=== PATIENT | female | born 1935 | race Caucasian/White ===

== ENCOUNTER 2019-04-12 16:29 | Inpatient (IN) | payer MEDICARE, SELFPAY ==
--- NOTE | ~2019-04-12 | XR_ITS ---
XR shoulder RT min 2V 04/13/2019 13:49 Indication: Right shoulder pain Procedure: 4 views right shoulder Comparison: No prior studies for comparison. Findings: There is severe osteoarthritis of the right shoulder including the glenohumeral and acromio clavicular joints. No acute fracture or traumatic malalignment. There is probable rotator cuff tear. Osteopenia. 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 Reviewed, dictated and finalized at location A. 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
--- NOTE | ~2019-04-12 | CT_ITS ---
EXAMINATION: CT lumbar spine wo con DATE: 04/12/2019 19:37 INDICATION: Low back pain after fall TECHNIQUE: Computed tomography (CT) of the lumbar spine was performed without intravenous contrast. T he dose-length product was 499.06 mGy-cm. Automated exposure control and iterative reconstruction farnaz hnique were employed. COMPARISON: None FINDINGS: There are bilateral sacral fractures. There is disc narrowing at L2-3 through L5-S1. There is moderate-severe diffuse lumbar facet hypertrophy. Mild levoscoliosis of the lumbar spine. Vertebra l body heights are maintained. No significant abnormality is of the visualized aspects of the abdomen . IMPRESSION: 1. Nondisplaced bilateral sacral fractures. 2: Severe lumbar spondylosis. Reviewed, dictated and finalized at location A. S CUTTER
--- NOTE | ~2019-04-12 | US_ITS ---
EXAMINATION: US right upper quadrant DATE: 04/14/2019 11:11 INDICATION: Abnormal liver function tests. TECHNIQUE: Multiple grayscale and Doppler ultrasound images of the abdomen were obtained. COMPARISON: CT abdomen and pelvis 11/18/2018 FINDINGS: The visualized portions of the head, body, and tail of the pancreas are normal. The liver i s normal without focal lesion. No liver surface nodularity. There is normal flow in main portal vein. The gallbladder is normal in size and contains gallstones. No gallbladder wall thickening or sonogra phic La sign. The common duct is normal and measures 4 mm. Abdominal aorta is normal in caliber. IMPRESSION: 1. Cholelithiasis. No evidence of acute cholecystitis. Reviewed, dictated and finalized at location A. N ASSISTANT
[2019-04-12 17:10] VITALS: BP 164/60; PULSE 65; RESP 16; TEMP 37.1; O2SAT 98
--- NOTE | 2019-04-12 18:05 | ED_ITS ---
I attest that this documentation has been prepared under the direction and in the presence of Darlene Underwood Scribe 04/12/19;18:05 HPI - Back Pain/Injury General Chief Complaint: Back Pain/Injury Stated Complaint: LOW BACK Time Seen by Provider: 04/12/19 18:03 Related Data Home Medications Medication Instructions Recorded Confirmed amlodipine 5 mg tablet 5 mg PO DAILY 03/18/19 ascorbate calcium (vitamin C) 500 500 mg PO BID 03/18/19 mg tablet aspirin 325 mg tablet 325 mg PO DAILY 03/18/19 calcium citrate 250 mg PO DAILY 03/18/19 cetirizine 10 mg tablet 10 mg PO DAILY PRN tablet 03/18/19 famotidine 20 mg tablet 20 mg PO DAILY 03/18/19 lisinopril 20 mg tablet 20 mg PO DAILY 03/18/19 omega-3 fatty acids 1,000 mg 1,000 mg PO DAILY 03/18/19 capsule Allergies Allergy/AdvReac Type Severity Reaction Status Date / Time No Known Allergies Allergy Verified 04/10/19 17:23 [facility] Past Medical History Medical History (Updated 04/10/19 @ 21:45 by Jen Sharma MD) Anticoagulation goal of INR 2 to 3 Arthritis of spine Chronic diarrhea Colon polyp Essential (primary) hypertension HH (hiatus hernia) History of right breast cancer Hx antineoplastic chemotherapy Personal history of radiation exposure Pulmonary embolism Right leg DVT Surgical History Surgical History (Updated 04/10/19 @ 21:45 by Jen Sharma MD) H/O colonoscopy History of right knee joint replacement History of right mastectomy Social History Social History (Updated 04/10/19 @ 17:24 by Renetta Lemus) Smoking status: Never smoker Second hand tobacco smoke exposure: No Alcohol intake: never Substance use: never Substance use type: does not use Gender identity (if verbalized by the patient): Female Course Vital Signs Vital signs: Vital Signs Temperature 37.1 C 04/12/19 17:10 Pulse Rate 65 04/12/19 17:10 Respiratory Rate 16 04/12/19 17:10 Blood Pressure 164/60 H 04/12/19 17:10 Pulse Oximetry 98 04/12/19 17:10 Temperature 37.1 C 04/12/19 17:10 Pulse Rate 65 04/12/19 17:10 Respiratory Rate 16 04/12/19 17:10 Blood Pressure 164/60 H 04/12/19 17:10 Pulse Oximetry 98 04/12/19 17:10 Discharge Plan Discharge Prescriptions: No Action lisinopril 20 mg tablet 20 mg PO DAILY RF: 0 amlodipine 5 mg tablet 5 mg PO DAILY RF: 0 famotidine 20 mg tablet 20 mg PO DAILY RF: 0 ascorbate calcium (vitamin C) 500 mg tablet 500 mg PO BID RF: 0 calcium citrate 250 mg calcium tablet 250 mg PO DAILY RF: 0 omega-3 fatty acids [Fish Oil Concentrate] 1,000 mg capsule 1,000 mg PO DAILY RF: 0 cetirizine 10 mg tablet 10 mg PO DAILY PRNRF: 0 aspirin 325 mg tablet 325 mg PO DAILY RF: 0 tramadol 50 mg tablet 50 mg PO Q6H PRN (Reason: pain) Qty: 42 RF: 0
--- NOTE | 2019-04-12 18:06 | ED.BACK ---
HPI - Back Pain/Injury General Chief Complaint: Back Pain/Injury Stated Complaint: LOW BACK Time Seen by Provider: 04/12/19 18:03 Source: patient and family Mode of arrival: ambulatory (walker) Limitations: no limitations History of Present Illness HPI Narrative: The pt is an 83 y/o female who presents to the ED with c/o lower back pain that began 10 days ago. The pt states that she had a fall on 04/01/19 and was here for rt hip and rt leg pain s/p the fall. Per family member, this pain is now all gone but the pt now has pain across her lower back. At her last visit, the pt's XR was negative. Her pain is alleviated with laying flat and heat, but is aggravated with walking and sitting up. The pt has seen a chiropractor a couple of times but states that she could not be properly evaluated or adjusted because she was not able to lay on her stomach. The pt saw her PCP, Dr. Audra Sharma 2 days ago, who said that she saw severe arthritis of her lower spine and prescribed her Tramadol. The pt and her family member called her PCP again last night because of worsening pain and was told to come to the ED if the pain was this severe. The pt states that she has been using a walker since the fall but can hardly ambulate or get to the bathroom due to the pain. The pt denies rt hip pain, rt leg pain, weakness, dizziness, urinary frequency, urinary retention, dysuria, CP, or SOB. She has not had any falls since her fall in March. MD elicited complaint: back pain Pertinent past history: arthritis and other (fall) Onset (ago): day(s) () Location: lumbar spine Exacerbating factors: other (walking, sitting up) Relieving factors: other (laying flat, heat) Context: fall Associated symptoms: denies other symptoms Related Data Home Medications Medication Instructions Recorded Confirmed amlodipine 5 mg tablet 5 mg PO DAILY 03/18/19 ascorbate calcium (vitamin C) 500 500 mg PO BID 03/18/19 mg tablet aspirin 325 mg tablet 325 mg PO DAILY 03/18/19 calcium citrate 250 mg PO DAILY 03/18/19 cetirizine 10 mg tablet 10 mg PO DAILY PRN tablet 03/18/19 famotidine 20 mg tablet 20 mg PO DAILY 01/07/20 lisinopril 20 mg tablet 20 mg PO DAILY 03/18/19 omega-3 fatty acids 1,000 mg 1,000 mg PO DAILY 03/18/19 capsule Allergies Allergy/AdvReac Type Severity Reaction Status Date / Time No Known Allergies Allergy Verified 04/10/19 17:23 Review of Systems Review of Systems: All systems reviewed & are unremarkable except as noted in HPI and below Constitutional: Constitutional: Denies weakness Cardiovascular: Cardiovascular: Denies chest pain Respiratory: Respiratory: Denies dyspnea Genitourinary: Genitourinary: Denies nocturia, Denies dysuria and Denies other (urinary retention) Musculoskeletal: Musculoskeletal: Reports back pain (lower) and Denies other (rt hip pain, rt leg pain) Neurologic: Denies dizziness PMFSH Past Medical History Medical History Anemia Anticoagulation goal of INR 2 to 3 Arthritis of spine Chronic diarrhea Colon polyp Esophageal disorder Essential (primary) hypertension Fractures rt fingers Gall bladder disease GERD (gastroesophageal reflux disease) HH (hiatus hernia) History of right breast cancer Hx antineoplastic chemotherapy Hyperlipidemia Hypertension Personal history of radiation exposure Pneumonia Pulmonary embolism Right leg DVT Tuberculosis Surgical History Surgical History H/O colonoscopy History of dilatation and curettage History of right knee joint replacement History of right mastectomy Social History Social History Smoking status: Never smoker Second hand tobacco smoke exposure: No Alcohol intake: never Substance use: never Substance use type: does not use Gender identity (if verbalized by the patient): Female
--- NOTE | 2019-04-12 18:40 | ED.BACK ---
HPI - Back Pain/Injury General Chief Complaint: Back Pain/Injury Stated Complaint: LOW BACK Time Seen by Provider: 04/12/19 18:03 Source: patient and family Mode of arrival: ambulatory (walker) Limitations: no limitations History of Present Illness HPI Narrative: The pt is an 83 y/o female who presents to the ED with c/o lower back pain that began 10 days ago. The pt states that she had a fall on 04/01/19 and was here for rt hip and rt leg pain s/p the fall. Per family member, this pain is now all gone but the pt now has pain across her lower back. At her last visit, the pt's XR was negative. Her pain is alleviated with laying flat and heat, but is aggravated with walking and sitting up. The pt has seen a chiropractor a couple of times but states that she could not be properly evaluated or adjusted because she was not able to lay on her stomach. The pt saw her PCP, Dr. Audra Sharma 2 days ago, who said that she saw severe arthritis of her lower spine and prescribed her Tramadol. The pt and her family member called her PCP again last night because of worsening pain and was told to come to the ED if the pain was this severe. The pt states that she has been using a walker since the fall but can hardly ambulate or get to the bathroom due to the pain. The pt denies rt hip pain, rt leg pain, weakness, dizziness, urinary frequency, urinary retention, dysuria, CP, or SOB. She has not had any falls since her fall in March. MD elicited complaint: back pain Pertinent past history: arthritis Onset (ago): day(s) (11) Location: lumbar spine Exacerbating factors: other (walking, sitting up) Relieving factors: other (laying flat, heat) Context: fall Associated symptoms: denies other symptoms Related Data Home Medications Medication Instructions Recorded Confirmed amlodipine 5 mg tablet 5 mg PO DAILY 03/18/19 04/12/19 ascorbate calcium (vitamin C) 500 500 mg PO BID 03/18/19 04/12/19 mg tablet aspirin 325 mg tablet 325 mg PO DAILY 03/18/19 04/12/19 calcium citrate 250 mg PO DAILY 03/18/19 04/12/19 famotidine 20 mg tablet 20 mg PO DAILY 03/18/19 04/12/19 lisinopril 20 mg tablet 20 mg PO DAILY 03/18/19 04/12/19 omega-3 fatty acids 1,000 mg 1,000 mg PO DAILY 03/18/19 04/12/19 capsule Allergies Allergy/AdvReac Type Severity Reaction Status Date / Time No Known Allergies Allergy Verified 04/10/19 17:23 Review of Systems Review of Systems: All systems reviewed & are unremarkable except as noted in HPI and below Constitutional: Constitutional: Denies weakness Cardiovascular: Cardiovascular: Denies chest pain Respiratory: Respiratory: Denies dyspnea Genitourinary: Genitourinary: Denies nocturia, Denies dysuria and Denies other (urinary retention) Musculoskeletal: Musculoskeletal: Reports back pain (lower) and Denies other (rt hip pain, rt leg pain) Neurologic: Denies dizziness PMFSH Past Medical History Medical History Anemia Anticoagulation goal of INR 2 to 3 Arthritis of spine Chronic diarrhea Colon polyp Esophageal disorder Essential (primary) hypertension Fractures rt fingers Gall bladder disease GERD (gastroesophageal reflux disease) HH (hiatus hernia) History of right breast cancer Hx antineoplastic chemotherapy Hyperlipidemia Hypertension Personal history of radiation exposure Pneumonia Pulmonary embolism Right leg DVT Tuberculosis Surgical History Surgical History H/O colonoscopy History of dilatation and curettage History of right knee joint replacement History of right mastectomy Social History Social History Smoking status: Never smoker Second hand tobacco smoke exposure: No Alcohol intake: never Substance use: never Substance use type: does not use Gender identity (if verbalized by the patient): Female Spiritual care concerns:
[2019-04-12 19:09] LABS: Basophils Percent Auto 0.4 % (0.2-1.2); Eosinophils Absolute Auto 0.1 K/mm3 (0-0.3); Eosinophils Percent Auto 1.7 % (0-4.4); Hematocrit 38.6 % (37.0-47.0); Hemoglobin 12.3 g/dL (12.0-15.0); Immature Granulocyte Absolute 0.02 K/mm3 (0.00-0.031); Immature Granulocyte Percent A 0.3 % (0-0.5); Lymphocytes Absolute Auto 1.33 K/mm3 (0.9-3.2); Lymphocytes Percent Auto 17.2 % (18.3-44.2); Mean Corpuscular HGB Conc 31.9 g/dl (32-36); Mean Corpuscular Hemoglobin 29.6 pg (26-34); Mean Corpuscular Volume 92.8 fl (80-100); Mean Platelet Volume 9.6 fl (7.4-10.4); Monocytes Absolute Auto 0.6 K/mm3 (0.1-0.6); Monocytes Percent Auto 7.6 % (2.6-8.5); Neutrophils Absolute Auto 5.6 K/mm3 (1.3-6.7); Neutrophils Percent Auto 72.8 % (45.5-73.1); Platelet Count Result 337 k/mm3 (150-375); Red Blood Count 4.16 M/mm3 (4.2-5.4); Red Cell Distribution Width 12.7 % (11.5-14.5); White Blood Count 7.7 K/mm3 (4.5-10.0)
[2019-04-12 19:20] LABS: Alanine Aminotransferase 78 U/L (4-35); Albumin Level 4.1 g/dL (3.5-5.1); Alkaline Phosphatase 150 U/L (38-126); Aspartate Amino Transferase 52 U/L (14-36); Bilirubin,Total 0.3 mg/dL (0.2-1.3); Blood Urea Nitrogen 35 mg/dL (7-17); Carbon Dioxide 26 mmol/L (22-30); Chloride 99 mmol/L (98-107); Estimated CRCL calculation 31 ml/min; Estimated Glomerular Filt Rate 53; Glucose 115 mg/dL (65-105); Potassium 4.5 mmol/L (3.4-5.0); Sodium 136 mmol/L (137-145)
[2019-04-12 20:29] VITALS: BP 150/70; PULSE 69; RESP 18; O2SAT 96
--- NOTE | 2019-04-12 21:27 | ADMGEN ---
This patient, Dolly Ruiz, was admitted to 2 Medical Room 251-01 [id number]. Patient/family oriented to hospital policies and general routines including ID bracelet, bed and alarms, visiting hours, pain management, procedures, bathroom and other care routines, personal items, smoking policy, room service/diet, and visiting hours. Valuables list has been completed. Information on how to activate the Rapid Response Team has been discussed. Patient/Family are encouraged to report perceived risks to care and to ask questions if they do not understand what they are told or what they should do.
[2019-04-12 22:20] VITALS: BP 153/58; PULSE 70; RESP 16; TEMP 36.2; O2SAT 95
--- NOTE | 2019-04-13 03:41 | PM.IMHP ---
H&P: HPI History of Present Illness Chief complaint: sacral fractures Narrative: This is a pleasant 83-year-old female with known past medical history of previous right-sided breast cancer, hypertension, previous DVT who presented to the hospital with complaint of lower back pain for the past 10 days after she suffered a fall at home. The patient states that approximately 10 days ago she was getting up out of her chair when she suffered a fall. She is unsure if she passed out or not at that time. She did present to the emergency room at that time for evaluation and routine x-rays were obtained which did not demonstrate any acute fracture. Since that time she has had increased debility and difficulty ambulating. She has been trying to ambulate with a walker but has had worsening pain. The patient finally decided to come back to emergency room tonight as her pain was relentless. CT lumbar spine demonstrated bilateral nondisplaced sacral fractures. The patient denies any bowel or bladder incontinence. On further questioning she also denies any fevers, chills, chest pain, shortness of breath, hip pain, abdominal pain, dysuria, hematuria, diarrhea, or rectal bleeding. We been asked to admit the patient to the hospital for her ambulatory dysfunction and severe pain. Patient has no other complaints at this time. Review of Systems Review of Systems: All systems reviewed & are unremarkable except as noted in HPI and below PMFSH Past Medical History Medical History Anemia Anticoagulation goal of INR 2 to 3 Arthritis of spine Chronic diarrhea Colon polyp Esophageal disorder Essential (primary) hypertension Fractures rt fingers Gall bladder disease GERD (gastroesophageal reflux disease) HH (hiatus hernia) History of right breast cancer Hx antineoplastic chemotherapy Hyperlipidemia Hypertension Personal history of radiation exposure Pneumonia Pulmonary embolism Right leg DVT Tuberculosis Surgical History Surgical History H/O colonoscopy History of dilatation and curettage History of right knee joint replacement History of right mastectomy Family History Family History Mother Acute myocardial infarction Breast cancer Diabetes mellitus Sibling Prostate carcinoma Father Eye cancer Diabetes mellitus Social History Social History Smoking status: Never smoker Second hand tobacco smoke exposure: No Alcohol intake: never Substance use: never Substance use type: does not use Gender identity (if verbalized by the patient): Female Spiritual care concerns: No Agree to blood products: Yes Meds Home Medications and Allergies Home Medications Medication Instructions Recorded Confirmed Type amlodipine 5 mg tablet 5 mg PO DAILY 03/18/19 04/12/19 History ascorbate calcium (vitamin C) 500 500 mg PO BID 03/18/19 04/12/19 History mg tablet aspirin 325 mg tablet 325 mg PO DAILY 03/18/19 04/12/19 History calcium citrate 250 mg PO DAILY 03/18/19 04/12/19 History famotidine 20 mg tablet 20 mg PO DAILY 03/18/19 04/12/19 History lisinopril 20 mg tablet 20 mg PO DAILY 03/18/19 04/12/19 History omega-3 fatty acids 1,000 mg 1,000 mg PO DAILY 03/18/19 04/12/19 History capsule tramadol 50 mg tablet 50 mg PO Q6H PRN #42 tablet 04/10/19 04/12/19 Rx Allergies Allergy/AdvReac Type Severity Reaction Status Date / Time No Known Allergies Allergy Verified 04/10/19 17:23 Vital Signs Vital Signs - 24 hr 04/12/19 17:10 04/12/19 20:29 04/12/19 22:20 Temperature 37.1 C 36.2 C L Pulse Rate 65 69 70 Respiratory Rate 16 18 16 Blood Pressure 164/60 H 150/70 H 153/58 H Pulse Oximetry 98 96 95 Exam Const: General: cooperative, alert and awake Nutritional Appearance: well nourished
[2019-04-13 05:55] LABS: Basophils Percent Auto 0.5 % (0.2-1.2); Eosinophils Absolute Auto 0.2 K/mm3 (0-0.3); Eosinophils Percent Auto 2.7 % (0-4.4); Hematocrit 34.9 % (37.0-47.0); Hemoglobin 11.2 g/dL (12.0-15.0); Immature Granulocyte Absolute 0.12 K/mm3 (0.00-0.031); Immature Granulocyte Percent A 1.5 % (0-0.5); Lymphocytes Absolute Auto 1.12 K/mm3 (0.9-3.2); Lymphocytes Percent Auto 13.8 % (18.3-44.2); Mean Corpuscular HGB Conc 32.1 g/dl (32-36); Mean Corpuscular Hemoglobin 29.5 pg (26-34); Mean Corpuscular Volume 91.8 fl (80-100); Mean Platelet Volume 9.7 fl (7.4-10.4); Monocytes Absolute Auto 0.8 K/mm3 (0.1-0.6); Monocytes Percent Auto 10.3 % (2.6-8.5); Neutrophils Absolute Auto 5.8 K/mm3 (1.3-6.7); Neutrophils Percent Auto 71.2 % (45.5-73.1); Platelet Count Result 317 k/mm3 (150-375); Red Cell Distribution Width 12.7 % (11.5-14.5); White Blood Count 8.1 K/mm3 (4.5-10.0)
[2019-04-13 06:00] VITALS: BP 147/62; PULSE 68; RESP 16; TEMP 36.1; O2SAT 100
[2019-04-13 06:19] LABS: Blood Urea Nitrogen 30 mg/dL (7-17); Calcium 8.8 mg/dL (8.4-10.2); Carbon Dioxide 25 mmol/L (22-30); Chloride 103 mmol/L (98-107); Estimated CRCL calculation 26 ml/min; Estimated Glomerular Filt Rate 43; Glucose 111 mg/dL (65-105); Potassium 4.4 mmol/L (3.4-5.0); Sodium 140 mmol/L (137-145)
--- NOTE | 2019-04-13 08:30 | PC.NURSE ---
Patient c/o right shoulder pain. States it is new and she has not experienced it before this morning. Called [facility]EL[facility] and left message regarding same.
[2019-04-13] MEDS: ASCORBIC ACID 500 MG TABLET PO ×2 (10:22→17:29)
[2019-04-13] MEDS: AMLODIPINE BESYLATE 5 MG TABLET PO (10:22)
[2019-04-13] MEDS: lisinopriL 20 MG TABLET PO (10:22)
[2019-04-13] MEDS: ASPIRIN 325 MG TABLET PO (10:22)
[2019-04-13] MEDS: FAMOTIDINE 20 MG TABLET PO (10:22)
[2019-04-13] MEDS: OMEGA 3 POLYUNSAT FATTY ACIDS 1 GM CAP PO (10:22)
--- NOTE | 2019-04-13 12:28 | PM.IMPN ---
Progress Note: A&P Assessment and Plan (1) Sacral fracture, closed: Qualifiers: Encounter type: initial encounter Zone of sacrum fracture: unspecified portion of sacrum Qualified Code(s): S32.10XA - Unspecified fracture of sacrum, initial encounter for closed fracture Code(s): S32.10XA - Unspecified fracture of sacrum, initial encounter for closed fracture Status: Acute Assessment and Plan: Patient is doing okay today. Occasional pain, but controlled with PO pain medication. Orthopedic Surgery consulted and appreciate recommendations Patient will likely need placement until fractures heal. CC working on placement PT/OT once possible Consider Orthostatic BP once able to move. (2) History of right breast cancer: Code(s): Z85.3 - Personal history of malignant neoplasm of breast Status: Chronic Assessment and Plan: No acute issues Follow up as outpatient (3) Essential (primary) hypertension: Code(s): I10 - Essential (primary) hypertension Status: Chronic Assessment and Plan: Elevated likely due to pain but stable. 140s sys this morning Monitor blood pressure. Continue lisinopril. (4) GERD (gastroesophageal reflux disease): Qualifiers: Esophagitis presence: esophagitis presence not specified Qualified Code(s): K21.9 - Gastro-esophageal reflux disease without esophagitis Code(s): K21.9 - Gastro-esophageal reflux disease without esophagitis Status: Chronic Assessment and Plan: No acute issues Continue famotidine (5) Right shoulder pain: Code(s): M25.511 - Pain in right shoulder Status: Acute Assessment and Plan: Pain started today. She is not a very good historian and does not give me much detail about the pain, but does tell me it hurts to adduct arm across body. She does not know if she hit her shoulder on her previous fall 10 days prior to admission. Exam was grossly unremarkable Xray of right shoulder to rule out fracture, but likely a pulled muscle Subjective Date/time seen: 04/13/19 12:28 Interval history: Patient is a 83 yo F with known past medical history of previous right-sided breast cancer, hypertension, previous DVT who is here for non-displaced fracture of the sacrum. Patient is doing okay today, but is in severe low back pain in certain positions while in bed. She complained of right shoulder pain this morning but is difficult time describing or locating the pain. She does tell me it hurts to adduct her arm across her body. She does not recall trauma to the arm/shoulder on the fall. Pain now seems to have subsided with pain medication She states she had a coughing fit this morning and both daughter and patient are concerned, although she states it seems to have passed. She has no other complaints. Denies f/c/ns, headaches, dizziness, lightheadedness, changes in v/h, cp/palpitations, sob, n/v/d/c, abd pain, dysphagia (has bangura in currently), melena, brbpr, dysuria, hematuria, cloudy urine, calf pain/swelling, s/sx of stroke Review of Systems Review of Systems: All systems reviewed & are unremarkable except as noted in HPI and below Exam Narrative: Exam Narrative: Patient lying in semi-gurrola's position at time of visit Const: General: cooperative, comfortable, no acute distress, well developed, alert and awake Nutritional Appearance: well nourished Orientation/consciousness: patient oriented x3 HENMT: Head: normal to inspection, normocephalic and atraumatic General nose exam: Normal external nose present and Normal nares present Face and sinus: normal facial exam Mouth: Yes Normal oral and palatal mucosa present and Yes moist mucous membranes Teeth and gingiva: fair dentition Throat: posterior or
[2019-04-13 14:00] VITALS: BP 136/58; PULSE 63; RESP 16; TEMP 37.1; O2SAT 97
--- NOTE | 2019-04-13 16:38 | PHAR ---
Home medication seen in pharmacy and returned to 2med unit. Calcium Citrate 600mg tablets
[2019-04-13] MEDS: polyethylene glycoL 3350 17 GM POWD.PACK PO (17:29)
[2019-04-13] MEDS: PHARMACIST COMMUNICATION ORDER 1 EACH XX (18:37)
[2019-04-13 19:26] LABS: Add Urine Microscopic? YES; Appearance Urine Clear (Clear); Bacteria Urine Trace /hpf; Bilirubin Urine Negative (Negative); Blood Urine 1+ (Negative); Color Urine Straw (Yellow); Glucose Urine UA Negative (Negative); Ketones Urine Negative (Negative); Leukocyte Esterase Ur Trace LEU/UL (Negative); Mucus Urine Rare /lpf; Nitrate Urine Negative (Negative); Protein Urine Negative (Negative); RBC Urine 0-2 /hpf (0-2); Specific Grav Ur 1.005 (1.001-1.035); Urobilinogen Urine Negative mg/dL (<2.0)
[2019-04-13 22:00] VITALS: BP 158/53; PULSE 73; RESP 18; TEMP 35.8; O2SAT 96
[2019-04-14 05:59] VITALS: BP 136/51; PULSE 78; RESP 16; TEMP 35.9; O2SAT 97
--- NOTE | 2019-04-14 06:01 | PC.NURSE ---
Pt attempted to get out of bed twice this evening. Pt was confused and said she did not know where she was or why she was here on both occasions.
[2019-04-14 06:46] LABS: Hematocrit 36.2 % (37.0-47.0); Hemoglobin 11.7 g/dL (12.0-15.0); Mean Corpuscular HGB Conc 32.3 g/dl (32-36); Mean Corpuscular Hemoglobin 29.6 pg (26-34); Mean Corpuscular Volume 91.6 fl (80-100); Mean Platelet Volume 9.9 fl (7.4-10.4); Platelet Count Result 332 k/mm3 (150-375); Red Blood Count 3.95 M/mm3 (4.2-5.4); Red Cell Distribution Width 12.7 % (11.5-14.5); White Blood Count 10.8 K/mm3 (4.5-10.0)
[2019-04-14 07:02] LABS: Alanine Aminotransferase 81 U/L (4-35); Albumin Level 3.9 g/dL (3.5-5.1); Alkaline Phosphatase 171 U/L (38-126); Aspartate Amino Transferase 53 U/L (14-36); Bilirubin,Total 0.3 mg/dL (0.2-1.3); Blood Urea Nitrogen 31 mg/dL (7-17); Carbon Dioxide 27 mmol/L (22-30); Chloride 99 mmol/L (98-107); Estimated CRCL calculation 28 ml/min; Estimated Glomerular Filt Rate 47; Glucose 115 mg/dL (65-105); Potassium 4.1 mmol/L (3.4-5.0); Sodium 136 mmol/L (137-145)
[2019-04-14 08:04] LABS: Hepatitis B Surface Antigen Negative (Negative)
[2019-04-14 08:10] LABS: HAV RESULT Negative (Negative); Hepatitis B Core IgM Result Negative (Negative)
[2019-04-14 08:22] LABS: Hepatitis C Virus Antibody Negative (Negative)
[2019-04-14] MEDS: ASPIRIN 325 MG TABLET PO (08:58)
[2019-04-14] MEDS: FAMOTIDINE 20 MG TABLET PO (08:58)
[2019-04-14] MEDS: lisinopriL 20 MG TABLET PO (08:58)
[2019-04-14] MEDS: AMLODIPINE BESYLATE 5 MG TABLET PO (08:58)
[2019-04-14] MEDS: ASCORBIC ACID 500 MG TABLET PO ×2 (08:58→16:22)
[2019-04-14] MEDS: OMEGA 3 POLYUNSAT FATTY ACIDS 1 GM CAP PO (08:59)
--- NOTE | 2019-04-14 09:18 | PM.IMPN ---
Progress Note: A&P Assessment and Plan (1) Sacral fracture, closed: Qualifiers: Encounter type: initial encounter Zone of sacrum fracture: unspecified portion of sacrum Qualified Code(s): S32.10XA - Unspecified fracture of sacrum, initial encounter for closed fracture Code(s): S32.10XA - Unspecified fracture of sacrum, initial encounter for closed fracture Status: Acute Assessment and Plan: Patient is doing okay today, although, confused. Occasional pain, but controlled with PO pain medication. Will stop [place] pain medication and place on Ibuprofen PRN Orthopedic Surgery consulted and appreciate recommendations Patient will likely need placement until fractures heal. CC working on placement PT/OT once possible Consider Orthostatic BP once stable to move per ortho. (2) History of right breast cancer: Code(s): Z85.3 - Personal history of malignant neoplasm of breast Status: Chronic Assessment and Plan: No acute issues Follow up as outpatient (3) Essential (primary) hypertension: Code(s): I10 - Essential (primary) hypertension Status: Chronic Assessment and Plan: Elevated likely due to pain but stable. 130s sys this morning Monitor blood pressure. Continue lisinopril. (4) GERD (gastroesophageal reflux disease): Qualifiers: Esophagitis presence: esophagitis presence not specified Qualified Code(s): K21.9 - Gastro-esophageal reflux disease without esophagitis Code(s): K21.9 - Gastro-esophageal reflux disease without esophagitis Status: Chronic Assessment and Plan: No acute issues Continue famotidine (5) Right shoulder pain: Code(s): M25.511 - Pain in right shoulder Status: Acute Assessment and Plan: Pain started yesterday and seemingly has resolved. She is not a very good historian and did not give me much detail about the pain, but did tell me it hurts to adduct arm across body. She does not know if she hit her shoulder on her previous fall 10 days prior to admission. Exam was grossly unremarkable yesterday Xray right shoulder showed severe polyarticular arthritis of right shoulder; no fracture evident Monitor/pain control (6) Transaminitis: Code(s): R74.0 - Nonspecific elevation of levels of transaminase and lactic acid dehydrogenase [LDH] Status: Acute Assessment and Plan: AST 53, ALT 81, alk phos 171. Stable from yesterday RUQ US ordered, will see if patient is willing to perform test this afternoon Hepatitis panel negative Likely f/u with PCP for further monitoring as outpatient (7) Confusion: Code(s): R41.0 - Disorientation, unspecified Status: Acute Assessment and Plan: She is A&Ox4 but slightly confused today as she does not feel like she is in the hospital. Neuro exam is unremarkable. Likely due to unfamiliar setting vs medication vs other Will hold off on brain imaging for now as Neuro exam unremarkable Monitor closely Consider further imaging. Change Durant pain mediation to ibuprofen Subjective Date/time seen: 04/14/19 09:18 Interval history: Patient is a 83 yo F with known past medical history of previous right-sided breast cancer, hypertension, previous DVT who is here for non-displaced fracture of the sacrum. Patient is doing okay today, but patient is slightly confused. She is A&Ox4 but states she does't feel like she's in the hospital; daughter is on the phone at time of visit and concerned. Patient is refusing RUQ US this morning to evaluate her transaminitis as she does not know why it was ordered; this was explained to her and she seemed more open to having the testing. She
[2019-04-14] MEDS: IBUPROFEN 400 MG TABLET PO (09:21)
[2019-04-14 14:00] VITALS: BP 142/48; PULSE 71; RESP 18; TEMP 36.2; O2SAT 94
--- NOTE | 2019-04-14 15:43 | PC.NURSE ---
no IV access. Ok per physician.
--- NOTE | 2019-04-14 15:45 | PM.CNOR ---
Assessment and Plan Assessment and plan (1) Sacral fracture, closed: Qualifiers: Encounter type: initial encounter Zone of sacrum fracture: unspecified portion of sacrum Qualified Code(s): S32.10XA - Unspecified fracture of sacrum, initial encounter for closed fracture Code(s): S32.10XA - Unspecified fracture of sacrum, initial encounter for closed fracture Status: Acute Assessment and Plan: 83 year old female with lower back pain s/p fall on 04/01. Initial radiographs on 04/01 of sacrum and bilateral hips reveal no evidence of fracture or acute abnormality. New lumbar spine CT scan reveals bilateral sacral fractures. The fracture type and injury as well as radiographs discussed with the patient and family. Operative and nonoperative treatment options reviewed. The patient elects for non operative treatment. Risk of nonunion, malunion or late displacement discussed. Stiffness, pain and possible dysfunction of the joint discussed. Fracture precautions and activity restrictions reviewed. The patient verbalizes understanding. Recommended conservative treatment with PT/OT for ambulatory dysfunction. WBAT. Walker. Fall Risk. Will plan to have patient fit with lumbar corset brace from [facility]. Non-narcotic pain medication at patient request. Ice lumbar spine. Agree with TRC or Acute Rehab for assistance with mobility and PT/OT. Follow up in as an outpatient in 5 weeks, will schedule. Thank you for allowing us to assist in the care of this patient. History of Present Illness HPI Consult date: 04/14/19 Requesting physician: Adiel Lora MD Consult reason: fracture (Bilateral Sacral Fractures ) Chief complaint: sacral fractures Narrative: 83 year old female admitted for bilateral sacral fractures. Patient reports a fall out of her recliner directly onto her bottom on 04/01 which prompted her initial visit to the ED. Radiographs of sacrum/coccyx and hips at that time negative for fracture or acute abnormality. She was then sent home. Her pain increased over the next 2 weeks, causing her difficulty with ambulation/ADLs. She then presented back to the ED on 04/12 at which point a lumbar spine CT was performed. Lumbar spine CT revealed bilateral sacral fractures. She was admitted for ambulatory dysfunction and severe pain. She reports pain across her back. She prefers Tylenol/Ibuprofen for pain control as she states the opioids made her confused. Review of Systems Constitutional: Constitutional: Denies chills and Reports weakness (B/L LE) Eyes: Eyes: Reports no additional eye complaints ENT: Reports Normal hearing present Cardiovascular: Cardiovascular: Denies chest pain and Denies lightheadedness Respiratory: Respiratory: Denies dyspnea Gastrointestinal: Gastrointestinal: Reports diarrhea (Intermittent incontinence of loose stool ), Denies nausea and Denies vomiting Genitourinary: Genitourinary: Denies urinary incontinence Musculoskeletal: Musculoskeletal: Reports as per HPI, Reports back pain (Lumbar Back Pain ) and Denies neck pain Comments: Denies bilateral hip pain/bilateral knee pain Denies left shoulder pain Integumentary/Breasts: Skin/Breast: Reports system reviewed and no additional complaints, except as docu Neurologic: Reports system reviewed and no additional complaints, except as documented, Reports abnormal gait (pain ) and Denies numbness Psychiatric: Psychiatric: Reports confusion (with opioid use- resolved this afternoon ) [facility] Past Medical History Medical History Anemia Anticoagulation goal of INR 2 to 3 Arthritis of spine Chronic diarrhea Colon polyp Esophageal disorder Essential (primary) hypertension Fractures rt fingers Gall bladder disease GERD (gastroesophageal reflux disease) HH (hiatus hernia) History of right breast cancer Hx antineoplastic chemotherapy Hyperlipidemia Hypertension Personal history of radiation exposure Pne
[2019-04-14 22:00] VITALS: BP 126/54; PULSE 65; RESP 20; TEMP 36.4; O2SAT 94
[2019-04-15 05:42] LABS: Basophils Percent Auto 0.4 % (0.2-1.2); Eosinophils Absolute Auto 0.2 K/mm3 (0-0.3); Eosinophils Percent Auto 1.9 % (0-4.4); Hematocrit 36.8 % (37.0-47.0); Hemoglobin 11.8 g/dL (12.0-15.0); Immature Granulocyte Absolute 0.03 K/mm3 (0.00-0.031); Immature Granulocyte Percent A 0.3 % (0-0.5); Lymphocytes Absolute Auto 1.55 K/mm3 (0.9-3.2); Lymphocytes Percent Auto 15.7 % (18.3-44.2); Mean Corpuscular HGB Conc 32.1 g/dl (32-36); Mean Corpuscular Hemoglobin 29.2 pg (26-34); Mean Corpuscular Volume 91.1 fl (80-100); Mean Platelet Volume 9.8 fl (7.4-10.4); Monocytes Absolute Auto 0.8 K/mm3 (0.1-0.6); Monocytes Percent Auto 7.9 % (2.6-8.5); Neutrophils Absolute Auto 7.3 K/mm3 (1.3-6.7); Neutrophils Percent Auto 73.8 % (45.5-73.1); Platelet Count Result 339 k/mm3 (150-375); Red Blood Count 4.04 M/mm3 (4.2-5.4); Red Cell Distribution Width 12.6 % (11.5-14.5); White Blood Count 9.9 K/mm3 (4.5-10.0)
[2019-04-15 06:00] VITALS: BP 135/55; PULSE 60; RESP 18; TEMP 36.2; O2SAT 98
[2019-04-15 06:04] LABS: Alanine Aminotransferase 85 U/L (4-35); Albumin Level 3.9 g/dL (3.5-5.1); Alkaline Phosphatase 169 U/L (38-126); Aspartate Amino Transferase 57 U/L (14-36); Bilirubin,Total 0.3 mg/dL (0.2-1.3); Blood Urea Nitrogen 33 mg/dL (7-17); Calcium 8.9 mg/dL (8.4-10.2); Carbon Dioxide 29 mmol/L (22-30); Chloride 101 mmol/L (98-107); Estimated CRCL calculation 26 ml/min; Estimated Glomerular Filt Rate 43; Glucose 105 mg/dL (65-105); Potassium 4.7 mmol/L (3.4-5.0); Sodium 139 mmol/L (137-145)
[2019-04-15] MEDS: ASCORBIC ACID 500 MG TABLET PO ×2 (08:39→16:25)
[2019-04-15] MEDS: OMEGA 3 POLYUNSAT FATTY ACIDS 1 GM CAP PO (08:39)
[2019-04-15] MEDS: ASPIRIN 325 MG TABLET PO (08:39)
[2019-04-15] MEDS: lisinopriL 20 MG TABLET PO (08:39)
[2019-04-15] MEDS: FAMOTIDINE 20 MG TABLET PO (08:39)
[2019-04-15] MEDS: AMLODIPINE BESYLATE 5 MG TABLET PO (08:39)
[2019-04-15] MEDS: IBUPROFEN 200 MG TABLET PO (08:40)
--- NOTE | 2019-04-15 09:40 | PCOTNOTE ---
OT evaluation attempted this AM. Brace from [employer] has not been delivered. RN stated that it should be delivered around 11. Will attempt OT evaluation when brace arrives
--- NOTE | 2019-04-15 09:42 | PCPTNOTE ---
Attempted evaluation this AM, unable to complete secondary to back brace not present, spoke with RN brace should arrive this afternoon and will attempt evaluation at that time.
--- NOTE | 2019-04-15 13:16 | PM.IMPN ---
Progress Note: A&P Assessment and Plan (1) Sacral fracture, closed: Qualifiers: Encounter type: initial encounter Zone of sacrum fracture: unspecified portion of sacrum Qualified Code(s): S32.10XA - Unspecified fracture of sacrum, initial encounter for closed fracture Code(s): S32.10XA - Unspecified fracture of sacrum, initial encounter for closed fracture Status: Acute Assessment and Plan: Patient is doing okay today. Occasional pain, but controlled with PO pain medication. Patient's pain is rated 3 or 4/10 at this time. She has only been given ibuprofen p.o. for last 24 hours for pain and has been controlled well. Her creatinine has remained stable with NSAID therapy. Orthopedic Surgery consulted and they recommend conservative treatment with PT and OT therapy. Weightbearing as tolerated. Use of a walker. Fall risk. Recommended ice placement to lumbar spine for pain. Patient did receive her lumbar corset brace from [facility]. Currently waiting for PT OT initial evaluation and recommendations for TRC versus acute rehab at this time. She will follow-up with orthopedic, Dr. Cotto, in 5 weeks. Consider Orthostatic BP once stable to move per ortho. Continue monitoring patient's pain and pending PT OT evaluation for possible TRC transfer. (2) Essential (primary) hypertension: Code(s): I10 - Essential (primary) hypertension Status: Chronic Assessment and Plan: Elevated likely due to pain but stable. 130-120s sys this morning Monitor blood pressure. Continue lisinopril. (3) History of right breast cancer: Code(s): Z85.3 - Personal history of malignant neoplasm of breast Status: Chronic Assessment and Plan: No acute issues Follow up as outpatient (4) GERD (gastroesophageal reflux disease): Qualifiers: Esophagitis presence: esophagitis presence not specified Qualified Code(s): K21.9 - Gastro-esophageal reflux disease without esophagitis Code(s): K21.9 - Gastro-esophageal reflux disease without esophagitis Status: Chronic Assessment and Plan: No acute issues Continue famotidine (5) Right shoulder pain: Code(s): M25.511 - Pain in right shoulder Status: Acute Assessment and Plan: Pain started yesterday and seemingly has resolved. She is not a very good historian and did not give me much detail about the pain, but did tell me it hurts to adduct arm across body. She does not know if she hit her shoulder on her previous fall 10 days prior to admission. Exam was grossly unremarkable yesterday Xray right shoulder showed severe polyarticular arthritis of right shoulder; no fracture evident Monitor/pain control. PT/OT. (6) Transaminitis: Code(s): R74.0 - Nonspecific elevation of levels of transaminase and lactic acid dehydrogenase [LDH] Status: Acute Assessment and Plan: AST 57, ALT 85, alk phos 169. Stable from yesterday The patient denies any right upper quadrant pain, nausea, vomiting at this time. RUQ US ordered and shows cholelithiasis. No evidence of acute cholecystitis. Hepatitis panel negative Likely f/u with PCP for further monitoring as outpatient Recheck CMP as an outpatient in 1 week post discharge. (7) Confusion: Code(s): R41.0 - Disorientation, unspecified Status: Acute Assessment and Plan: She is A&Ox4. Likely due to unfamiliar setting vs medication vs other And O x4 today. Seems much better and not confused on my evaluation. Monitor closely Consider further imaging. Continue with ibuprofen and no narcotics. Time Spent With Patient Time with patient: 25 - 35 minutes Subjective Date/t
[2019-04-15] MEDS: IBUPROFEN 400 MG TABLET PO (13:54)
[2019-04-15 14:00] VITALS: BP 124/46; PULSE 68; RESP 18; TEMP 36.2; O2SAT 98
--- NOTE | 2019-04-15 15:12 | P.DS_ITS ---
DS: Diagnosis Admitting Diagnosis Admitting Diagnosis: Unspecified fracture of sacrum, initial encounter for close d fracture Discharge Diagnosis (1) Sacral fracture, closed: Qualifiers: Encounter type: initial encounter Zone of sacrum fracture: unspecified portion of sacrum Qualified Code(s): S32.10XA - Unspecified fracture of sacrum, initial encounter for closed fracture Code(s): S32.10XA - Unspecified fracture of sacrum, initial encounter for closed fracture Status: Acute Assessment and Plan: Patient is doing okay today. * Occasional pain, but controlled with PO pain medication. * Patient's pain is rated 3 or 4/10 at this time. She has only been given ibuprofen p.o. for last 24 hours for pain and has been controlled well. * Her creatinine has remained stable with NSAID therapy. * Orthopedic Surgery consulted and they recommend conservative treatment with PT and OT therapy. Weightbearing as tolerated. Use of a walker. Fall risk. Recommended ice placement to lumbar spine for pain. * Patient did receive her lumbar corset brace from [facility]. * She was evaluated by PT OT and she was accepted into [facility] for further PT/OT. * She will follow-up with orthopedic, Dr. Cotto, in 5 weeks. (2) Essential (primary) hypertension: Code(s): I10 - Essential (primary) hypertension Status: Chronic Assessment and Plan: Elevated likely due to pain but stable. 130-120s sys this morning * Monitor blood pressure. * Continue lisinopril. (3) History of right breast cancer: Code(s): Z85.3 - Personal history of malignant neoplasm of breast Status: Chronic Assessment and Plan: No acute issues * Follow up as outpatient (4) GERD (gastroesophageal reflux disease): Qualifiers: Esophagitis presence: esophagitis presence not specified Qualified Code(s): K21.9 - Gastro-esophageal reflux disease without esophagitis Code(s): K21.9 - Gastro-esophageal reflux disease without esophagitis Status: Chronic Assessment and Plan: No acute issues * Continue famotidine (5) Right shoulder pain: Code(s): M25.511 - Pain in right shoulder Status: Acute Assessment and Plan: Pain started yesterday and seemingly has resolved. She is not a very good historian and did not give me much detail about the pain, but did tell me it hurts to adduct arm across body. She does not know if she hit her shoulder on her previous fall 10 days prior to admission. Exam was grossly unremarkable yesterday * Xray right shoulder showed severe polyarticular arthritis of right shoulder; no fracture evident * Monitor/pain control. PT/OT. (6) Transaminitis: Code(s): R74.0 - Nonspecific elevation of levels of transaminase and lactic acid dehydrogenase [LDH] Status: Acute Assessment and Plan: AST 57, ALT 85, alk phos 169. Stable from yesterday * The patient denies any right upper quadrant pain, nausea, vomiting at this time. * RUQ US ordered and shows cholelithiasis. No evidence of acute cholecystitis. * Hepatitis panel negative * Likely f/u with PCP for further monitoring as outpatient * Recheck CMP as an outpatient in 1 week post discharge. (7) Confusion: Code(s): R41.0 - Disorientation, unspecified Status: Acute Assessment and Plan: She is A&Ox4. Likely due to unfamiliar set
--- NOTE | 2019-04-15 15:12 | PM.DS ---
DS: Diagnosis Admitting Diagnosis Admitting Diagnosis: Unspecified fracture of sacrum, initial encounter for closed fracture Discharge Diagnosis (1) Sacral fracture, closed: Qualifiers: Encounter type: initial encounter Zone of sacrum fracture: unspecified portion of sacrum Qualified Code(s): S32.10XA - Unspecified fracture of sacrum, initial encounter for closed fracture Code(s): S32.10XA - Unspecified fracture of sacrum, initial encounter for closed fracture Status: Acute Assessment and Plan: Patient is doing okay today. Occasional pain, but controlled with PO pain medication. Patient's pain is rated 3 or 4/10 at this time. She has only been given ibuprofen p.o. for last 24 hours for pain and has been controlled well. Her creatinine has remained stable with NSAID therapy. Orthopedic Surgery consulted and they recommend conservative treatment with PT and OT therapy. Weightbearing as tolerated. Use of a walker. Fall risk. Recommended ice placement to lumbar spine for pain. Patient did receive her lumbar corset brace from [facility]. She was evaluated by PT OT and she was accepted into [facility] for further PT/OT. She will follow-up with orthopedic, Dr. Cotto, in 5 weeks. (2) Essential (primary) hypertension: Code(s): I10 - Essential (primary) hypertension Status: Chronic Assessment and Plan: Elevated likely due to pain but stable. 130-120s sys this morning Monitor blood pressure. Continue lisinopril. (3) History of right breast cancer: Code(s): Z85.3 - Personal history of malignant neoplasm of breast Status: Chronic Assessment and Plan: No acute issues Follow up as outpatient (4) GERD (gastroesophageal reflux disease): Qualifiers: Esophagitis presence: esophagitis presence not specified Qualified Code(s): K21.9 - Gastro-esophageal reflux disease without esophagitis Code(s): K21.9 - Gastro-esophageal reflux disease without esophagitis Status: Chronic Assessment and Plan: No acute issues Continue famotidine (5) Right shoulder pain: Code(s): M25.511 - Pain in right shoulder Status: Acute Assessment and Plan: Pain started yesterday and seemingly has resolved. She is not a very good historian and did not give me much detail about the pain, but did tell me it hurts to adduct arm across body. She does not know if she hit her shoulder on her previous fall 10 days prior to admission. Exam was grossly unremarkable yesterday Xray right shoulder showed severe polyarticular arthritis of right shoulder; no fracture evident Monitor/pain control. PT/OT. (6) Transaminitis: Code(s): R74.0 - Nonspecific elevation of levels of transaminase and lactic acid dehydrogenase [LDH] Status: Acute Assessment and Plan: AST 57, ALT 85, alk phos 169. Stable from yesterday The patient denies any right upper quadrant pain, nausea, vomiting at this time. RUQ US ordered and shows cholelithiasis. No evidence of acute cholecystitis. Hepatitis panel negative Likely f/u with PCP for further monitoring as outpatient Recheck CMP as an outpatient in 1 week post discharge. (7) Confusion: Code(s): R41.0 - Disorientation, unspecified Status: Acute Assessment and Plan: She is A&Ox4. Likely due to unfamiliar setting vs medication vs other And O x4 today. Seems much better and not confused on my evaluation. Monitor closely Consider further imaging. Continue with ibuprofen and no narcotics. DS: Summary Hospital Course Reason for hospitalization: The patient is an 83-year-old woman with a medical history of hypertension, previous DVT, w
== END 2019-04-15 17:50 | DRG 552 ==
LOC: ANHED 20:25 → ANH3MEDSUR 20:28 → ANH2MED 20:58
PROVIDERS: Physician Assistant; Admitting Provider Family Medicine; Emergency Provider Emergency Medicine; PCP Family Medicine; Visit Provider Family Medicine
DX: S32.10XA Unspecified fracture of sacrum, initial encounter for closed fracture (principal); I10 Essential (primary) hypertension; K21.9 Gastro-esophageal reflux disease without esophagitis; R74.0 Nonspecific elevation of levels of transaminase and lactic acid dehydrogenase [LDH]; D64.9 Anemia, unspecified; K80.20 Calculus of gallbladder without cholecystitis without obstruction; M46.90 Unspecified inflammatory spondylopathy, site unspecified; M13.811 Other specified arthritis, right shoulder; K46.9 Unspecified abdominal hernia without obstruction or gangrene; R41.0 Disorientation, unspecified; W19.XXXA Unspecified fall, initial encounter; E78.5 Hyperlipidemia, unspecified; Z96.651 Presence of right artificial knee joint; Z85.3 Personal history of malignant neoplasm of breast; Z86.718 Personal history of other venous thrombosis and embolism; Z86.711 Personal history of pulmonary embolism
CPT/HCPCS: 36415; 72131; 73030; 76705; 80048; 80053; 80074; 81001; 85025; 85027; 97161; 97165; 99285; A9270; G0378

== ENCOUNTER 2019-04-15 18:04 | IRF | payer MEDICARE, SELFPAY ==
--- NOTE | 2019-04-15 18:36 | ADMGEN ---
This patient, Dolly Ruiz, was admitted to [facility] Room 224-01. Patient/family oriented to hospital policies and general routines including ID bracelet, bed and alarms, visiting hours, pain management, procedures, bathroom and other care routines, personal items, smoking policy, room service/diet, and visiting hours. Valuables list has been completed. Information on how to activate the Rapid Response Team has been discussed. Patient/Family are encouraged to report perceived risks to care and to ask questions if they do not understand what they are told or what they should do.
[2019-04-15 18:48] VITALS: BMI 23.8
[2019-04-15 22:00] VITALS: BP 134/51; PULSE 64; RESP 18; TEMP 36.6; O2SAT 96
[2019-04-16 05:02] LABS: Basophils Absolute Auto 0.1 K/mm3 (0.0-0.1); Basophils Percent Auto 0.6 % (0.2-1.2); Eosinophils Absolute Auto 0.4 K/mm3 (0-0.3); Eosinophils Percent Auto 4.4 % (0-4.4); Hematocrit 36.6 % (37.0-47.0); Hemoglobin 11.7 g/dL (12.0-15.0); Immature Granulocyte Absolute 0.04 K/mm3 (0.00-0.031); Immature Granulocyte Percent A 0.5 % (0-0.5); Lymphocytes Absolute Auto 1.78 K/mm3 (0.9-3.2); Lymphocytes Percent Auto 21.7 % (18.3-44.2); Mean Corpuscular Hemoglobin 29.5 pg (26-34); Mean Corpuscular Volume 92.2 fl (80-100); Monocytes Absolute Auto 0.8 K/mm3 (0.1-0.6); Monocytes Percent Auto 9.4 % (2.6-8.5); Neutrophils Absolute Auto 5.2 K/mm3 (1.3-6.7); Neutrophils Percent Auto 63.4 % (45.5-73.1); Platelet Count Result 366 k/mm3 (150-375); Red Blood Count 3.97 M/mm3 (4.2-5.4); Red Cell Distribution Width 12.7 % (11.5-14.5); White Blood Count 8.2 K/mm3 (4.5-10.0)
[2019-04-16 05:30] LABS: Blood Urea Nitrogen 39 mg/dL (7-17); Calcium 8.7 mg/dL (8.4-10.2); Carbon Dioxide 27 mmol/L (22-30); Chloride 99 mmol/L (98-107); Estimated CRCL calculation 26 ml/min; Estimated Glomerular Filt Rate 39; Glucose 94 mg/dL (65-105); Potassium 4.6 mmol/L (3.4-5.0); Sodium 136 mmol/L (137-145)
[2019-04-16 06:00] VITALS: BP 132/51; PULSE 62; RESP 17; TEMP 36.3; O2SAT 84
[2019-04-16 08:00] VITALS: PULSE 62; RESP 17; O2SAT 84
[2019-04-16] MEDS: AMLODIPINE BESYLATE 5 MG TABLET PO (08:34)
[2019-04-16] MEDS: lisinopriL 20 MG TABLET PO (08:35)
[2019-04-16] MEDS: OMEGA 3 POLYUNSAT FATTY ACIDS 1 GM CAP PO (08:35)
[2019-04-16] MEDS: IBUPROFEN 400 MG TABLET PO ×2 (08:35→20:24)
[2019-04-16] MEDS: ASCORBIC ACID 500 MG TABLET PO ×2 (08:36→17:22)
[2019-04-16] MEDS: ASPIRIN 325 MG TABLET PO (08:36)
[2019-04-16] MEDS: FAMOTIDINE 20 MG TABLET PO (08:37)
--- NOTE | 2019-04-16 09:30 | WPDREHABHP ---
H&P: HPI History of Present Illness Chief complaint: Non-Displaced Bilateral sacral fracture Narrative: Dolly Ruiz is a 83 year old female HISTORY OF PRESENT ILLNESS: The patient's primary rehab impairment category is 0 [id number] extremity fracture The etiologic diagnosis is nondisplaced bilateral sacral fractures I saw this patient [id number] on April 16, 2019 at 9:30 a.m. The patient is an 83-year-old right-handed woman with a past medical history of right-sided breast cancer, hypertension, and previous right lower extremity DVT who presented to [facility] with complaints of low back pain after she suffered a fall at home. The patient stated that she suffered a fall approximately 10 days ago which she was getting out of a chair. She did present to the emergency room at the time for evaluation and routine x-rays did not demonstrate any acute fracture. Patient reported she has had progressive debility and difficulty ambulating due to pain and discomfort and a CT lumbar spine demonstrated bilateral nondisplaced sacral fractures. 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 Orthopedic surgeon consulted and discussed treatment options with the patient and family. The patient opted for non operative management. Orthopedics ordered a lumbar corset brace to be fit a by a [employer]. She is being treated with nonnarcotic oral medications and was made weight-bearing as tolerated. Orthopedic recommended physical and occupational therapy. She will follow-up with orthopedics in 5 weeks. A right upper quadrant ultrasound was performed for transaminitis and demonstrated cholelithiasis without acute cholecystitis. Hepatitis panel was negative. The patient will follow-up with the primary care physician on an outpatient basis for management as this is a chronic condition. DVT prophylaxis with sequential compression devices only. Therapy was initiated at the acute care facility and the patient transferred to us from [facility] on For before 2019 FALLS OR SURGERIES: The patient has had no major surgeries in the 100 days prior to admission. They had falls in the past year. They had falls with injury in the past year. 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 PAST SURGICAL HISTORY: Right mastectomy, right knee joint replacement, colonoscopy, dilatation and curettage. SOCIAL HISTORY: Patient denies any alcohol tobacco or illicit use of drugs. She lives with her daughter in and was the patient is the primary caretaker resort and her daughter who is paraplegic since age 13 and now 48 is a really big burden for her. The patient has not of the daughter from his we who is currently caring for her sister was her mother is recovering. FAMILY HISTORY: Mother had acute myocardial infarction, breast cancer, and diabetes mellitus. Father had I cancer and diabetes mellitus, sibling at prostate cancer. PRIOR LEVEL OF FUNCTION: Eating was INDEPENDENT Oral Care was INDEPENDENT Toileting Hygiene was INDEPENDENT Shower/Bathing was INDEPENDENT Upper Body Dressing was INDEPENDENT Lower Body Dressing was INDEPENDENT Donning/[place] Footwear was INDEPENDENT Rolling Left and Right was INDEPENDENT Sit to Lying was INDEPENDENT Lying to Sitting was INDEPENDENT Sit to Stand was INDEPENDENT Bed to Chair Transfers was INDEPENDENT Toilet Transfers was INDEPENDENT Walking was INDEPENDENT 750 feet with NO DEVICE Wheelchair Mobility was NOT APPLICABLE PRIOR TO ADMISSION Stairs were INDEPENDENT CURRENT LEVEL OF FUNCT
[2019-04-16 13:38] VITALS: BMI 23.8
[2019-04-16 14:00] VITALS: BP 135/48; PULSE 64; RESP 17; TEMP 36.5; O2SAT 92
--- NOTE | 2019-04-16 14:23 | PCNSR ---
On 04/16/19, the student, Karine Harrison, provided care and completed [facility] documentation on this patient. I have reviewed the student's documentation and agree with the findings.
[2019-04-16 21:20] VITALS: BP 126/47; PULSE 64; RESP 16; TEMP 36.5; O2SAT 96
[2019-04-17 06:00] VITALS: BP 128/53; PULSE 55; RESP 16; TEMP 36.1; O2SAT 98
[2019-04-17] MEDS: AMLODIPINE BESYLATE 5 MG TABLET PO (08:33)
[2019-04-17] MEDS: OMEGA 3 POLYUNSAT FATTY ACIDS 1 GM CAP PO (08:33)
[2019-04-17] MEDS: lisinopriL 20 MG TABLET PO (08:33)
[2019-04-17] MEDS: ASCORBIC ACID 500 MG TABLET PO ×2 (08:33→16:55)
[2019-04-17] MEDS: ASPIRIN 325 MG TABLET PO (08:34)
[2019-04-17] MEDS: IBUPROFEN 400 MG TABLET PO (08:35)
[2019-04-17] MEDS: FAMOTIDINE 20 MG TABLET PO (08:35)
--- NOTE | 2019-04-17 11:06 | WPDNEURORHBP ---
Subjective Date/time seen: 04/17/19 11:06 Interval history: patient is here with bilateral sacral fracture wearing lumbosacral corsette a relatively more comfortable than yesterday, however she has a Puente catheter which she is hesitant to have it removed as it causes her to have more pain when she moves for going to the bath room I discussed with her that we can probably removed the catheter in a day or so and she can use the bedpan if she does not want to get up because of the pain she says she will think about it Review of Systems Constitutional: Constitutional: Reports no additional constitutional complaints Eyes: Eyes: Reports no additional eye complaints ENT: Reports system reviewed and no additional complaints, except as documented Cardiovascular: Cardiovascular: Reports no additional cardiovascular complaints Respiratory: Respiratory: Reports no additional respiratory complaints Gastrointestinal: Gastrointestinal: Reports no additional gastrointestinal complaints Musculoskeletal: Musculoskeletal: Reports no additional musculoskeletal complaints Integumentary/Breasts: Skin/Breast: Reports system reviewed and no additional complaints, except as docu Neurologic: Reports system reviewed and no additional complaints, except as documented Psychiatric: Psychiatric: Reports no additional psychiatric complaints Functional Status Ambulation Ability Ability to Ambulate 10 Feet: Minimum Assistance X 1 Ability to Ambulate 50 Feet With 2 Turns: Minimum Assistance X 1 Ambulation Assistive Devices: Walker, Wheeled Transfers Ability Ability to Transfer In/Out of Chair: Moderate Assistance X 1 Exam Const: General: comfortable and no acute distress HENMT: General nose exam: Normal nares present Mouth: Yes moist mucous membranes Eyes: General: appearance normal, both eyes and all related structures Neck: Neck: supple and no JVD Resp: Effort & Inspection: normal respiratory effort Auscultation: clear to auscultation bilaterally Cardio: Rate: regular rate Rhythm: regular rhythm GI: GI Palp: Yes Soft to palpation Auscultation: normal bowel sounds Urinary Catheter: Urinary Catheter: patent and draining Skin: General skin exam: normal color and no rashes or lesions noted Neuro: Other: patient remains alert well oriented time place and person with normal cranial examination normal motor examination to the extent that she has generalized weakness also difficulty ambulating because of the bilateral fracture and she needs to guard from fall and prevent a fall in fact along with lumbosacral corset Extrem: General: normal to inspection Objective Data Vital Signs Vital Signs: Vital Signs - 24 hr 04/16/19 14:00 04/16/19 21:20 04/17/19 06:00 Temperature 36.5 C 36.5 C 36.1 C L Pulse Rate 64 64 55 L Respiratory Rate 17 16 16 Blood Pressure 135/48 L 126/47 L 128/53 L Pulse Oximetry 92 96 98 Intake/Output Intake/Output: Intake & Output 04/14/19 04/15/19 04/16/19 04/17/19 23:59 23:59 23:59 23:59 Intake Total 1620 480 Output Total 1700 600 Balance -80 -120 Meds/Results Medications: Active Medications Generic Name Dose Route Start Last Admin Trade Name Freq PRN Reason Stop Dose Admin Acetaminophen 500 mg 04/15/19 18:20 Tylenol Tablet PO Q6H PRN pain rated 1-3 Amlodipine Besylate 5 mg 04/16/19 09:00 04/17/19 08:33 Norvasc PO 5 mg DAILY LAURIE Administration Ascorbic Acid 500 mg 04/16/19 09:00 04/17/19 08:33 Vitamin C PO 500 mg BID LAURIE Administration Aspirin 325 mg 04/16/19 09:00 04/17/19 08:34 Aspirin PO 325 mg DAILY LAURIE Administration Calcium Citrate 2 tablet 04/17/19 09:00 04/17/19 08:34 Calcitrate + Vit D Caplet PO 2 tablet BID LAURIE Administration Famotidine 20 mg 04/16/19 09:00 04/17/19 08:35 Pepcid PO 20 mg DAILY LAURIE Administration Fish Oil 1 gm 04/16/19 09:00 04/17/19 08:33 Lovaza PO 1 gm DAILY [facility] Adm
[2019-04-17 14:00] VITALS: BP 137/48; PULSE 61; RESP 17; TEMP 36.4; O2SAT 97
--- NOTE | 2019-04-17 16:26 | RPD ---
INDIVIDUALIZED PLAN OF CARE FOR Dolly Ruiz Brief Synthesis of Pre-Admission Screen, Post-Admission Evaluation and Therapy Evaluations: The patient presents to rehab with Nondisplaced bilateral sacral fractures. 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 The patient requires nursing services for DVT prophylactics, infection protection, medication management and education, pressure relief, and wound care. 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 Treatments may include: Therapeutic Exercise, Gait Training, Neuromuscular Re-education, Transfer Training, Community Reintegration, Bed Mobility, Patient/Family Education, Wheelchair Mobility Group Therapy/Concurrent Therapy Rationales: -Improve attention span during functional activities in a distracted environment. -Enhance problem solving and/or adequate judgment skills during functional activities in a distracted environment. -Promote increased safety awareness in a distracted environment to reduce fall risk with functional tasks, transfers, and ambulation to allow a more safe, self-sufficient return to the home environment. -Improve dynamic balance skills to promote safety and independence with functional activities in a distracted environment for maximum gain. Occupational Therapy: 5 days per week for 90 minutes. Treatments may include: Therapeutic Exercise, Therapeutic Activity, Cognitive Training, Self-Care Transfer Training, Community Reintegration, Home Management, Patient/Family Education, Wheelchair Mobility Training, Energy Conservation Training Group Therapy/Concurrent Therapy Rationales: -Allow therapist to observe and teach generalization and carry-over of skills learned in individual therapy. -Enhance problem solving and sequencing skills during therapeutic activities in a distracted environment. -Promote increased safety awareness in a realistic setting to reduce fall risk with functional tasks due to visual and verbal distractions. -Increase functional level with ADLs, ADL transfers and use of adaptive equipment through therapeutic activities with others while promoting safety to allow a more safe, self-sufficient return home. Medical Prognosis: Good Anticipated Length of Stay: 15 days Rehab Goals: Eating Goal: 06-Independent Oral Hygiene Goal: 06- Independent Toileting Hygiene Goal: 06-Independent Shower/Bathe Self Goal: 06-Independent Upper Body Dressing Goal: 06-Independent Lower Body Dressing Goal: 06-Independent Putting On/Taking Off Footwear Goal: 06-Independent Rolling Left and Right Goal: 06-Independent Sit to Lying Goal: 06-Independent Lying to Sitting on Side of Bed Goal: 06-Independent Sit to Stand Goal: 06-Independent Chair/[id number] Transfer Goal: 06-Independent Toilet Transfer Goal: 06-Independent Car Transfer Goal: 06-Independent Walk 10' Goal: 06-Independent Walk 50' with Two Turns Goal: 06-Independent Walk 150' Goal: 06-Independent Walk 10' on Uneven Surface Goal: 06-Independent 1 Step (Curb) Goal: 06-Independent 4 Steps Goal: 06-Independent 12 Steps Goal Score: 09-Not Applicable Picking Up Object Goal: 06-Independent Wheel 50' with Two Turns Score: 06-Independent Wheel 150' Goal: 06-Independent Anticipated discharge destination: Home, with possible homecare to follow
[2019-04-17] MEDS: MENTHOL 10% / METHYL SALICYLATE 15% 57 GM TUBE 1 APPLIC TOPICAL (16:56)
[2019-04-17 22:00] VITALS: BP 137/51; PULSE 62; RESP 18; TEMP 36.7; O2SAT 97
[2019-04-18 06:00] VITALS: BP 134/48; PULSE 57; RESP 18; TEMP 36.6; O2SAT 95
[2019-04-18] MEDS: IBUPROFEN 400 MG TABLET PO ×2 (07:28→17:11)
[2019-04-18] MEDS: OMEGA 3 POLYUNSAT FATTY ACIDS 1 GM CAP PO (08:29)
[2019-04-18] MEDS: ASPIRIN 325 MG TABLET PO (08:30)
[2019-04-18] MEDS: lisinopriL 20 MG TABLET PO (08:30)
[2019-04-18] MEDS: AMLODIPINE BESYLATE 5 MG TABLET PO (08:30)
[2019-04-18] MEDS: FAMOTIDINE 20 MG TABLET PO (08:31)
[2019-04-18] MEDS: ASCORBIC ACID 500 MG TABLET PO ×2 (08:31→17:11)
--- NOTE | 2019-04-18 13:12 | WPDNEURORHBP ---
Subjective Date/time seen: 04/18/19 13:12 Interval history: patient is still has the pain in the sacral area where the fracture is however has benefited with [facility] appointment Her strength and endurance is improved no chest pain no headache no shortness of breath no lateralizing paresthesias or focal motor deficit weakness in the legs is improving and directly related to the sacral fracture Review of Systems Constitutional: Constitutional: Reports no additional constitutional complaints Eyes: Eyes: Reports no additional eye complaints ENT: Reports system reviewed and no additional complaints, except as documented Cardiovascular: Cardiovascular: Reports no additional cardiovascular complaints Respiratory: Respiratory: Reports no additional respiratory complaints Gastrointestinal: Gastrointestinal: Reports no additional gastrointestinal complaints Genitourinary: Genitourinary: Reports no additional female genitourinary complaints Musculoskeletal: Musculoskeletal: Reports no additional musculoskeletal complaints Integumentary/Breasts: Skin/Breast: Reports system reviewed and no additional complaints, except as docu Neurologic: Reports system reviewed and no additional complaints, except as documented Psychiatric: Psychiatric: Reports no additional psychiatric complaints Functional Status Ambulation Ability Ability to Ambulate 10 Feet: Standby Assistance Ability to Ambulate 50 Feet With 2 Turns: Contact Guard Ability to Ambulate 150 Feet: Contact Guard Ambulation Assistive Devices: Walker, Wheeled Transfers Ability Ability to Transfer In/Out of Chair: Moderate Assistance X 1 Exam Const: General: no acute distress and uncomfortable Other: she is uncomfortable due to sacral pain related to fractures HENMT: General nose exam: Normal nares present Mouth: Yes moist mucous membranes Eyes: General: appearance normal, both eyes and all related structures Neck: Neck: supple and no JVD Resp: Effort & Inspection: normal respiratory effort Auscultation: clear to auscultation bilaterally Cardio: Rate: regular rate Rhythm: regular rhythm GI: GI Palp: Yes Soft to palpation Auscultation: normal bowel sounds Urinary Catheter: Urinary Catheter: patent and draining Skin: General skin exam: normal color and no rashes or lesions noted Neuro: Other: the mental status examination normal cranial nerve examination is normal the lower extremity weakness is directly related to the sacral pain but this is also improving Extrem: General: normal to inspection Objective Data Vital Signs Vital Signs: Vital Signs - 24 hr 04/17/19 14:00 04/17/19 22:00 04/18/19 06:00 Temperature 36.4 C 36.7 C 36.6 C Pulse Rate 61 62 57 L Respiratory Rate 17 18 18 Blood Pressure 137/48 L 137/51 L 134/48 L Pulse Oximetry 97 97 95 Intake/Output Intake/Output: Intake & Output 04/15/19 04/16/19 04/17/19 04/18/19 23:59 23:59 23:59 23:59 Intake Total 1620 1710 360 Output Total 1700 1125 1200 Balance -80 585 -840 Meds/Results Medications: Active Medications Generic Name Dose Route Start Last Admin Trade Name Freq PRN Reason Stop Dose Admin Acetaminophen 500 mg 04/15/19 18:20 Tylenol Tablet PO Q6H PRN pain rated 1-3 Amlodipine Besylate 5 mg 04/16/19 09:00 04/18/19 08:30 Norvasc PO 5 mg DAILY LAURIE Administration Ascorbic Acid 500 mg 04/16/19 09:00 04/18/19 08:31 Vitamin C PO 500 mg BID LAURIE Administration Aspirin 325 mg 04/16/19 09:00 04/18/19 08:30 Aspirin PO 325 mg DAILY LAURIE Administration Calcium Citrate 2 tablet 04/17/19 09:00 04/18/19 08:30 Calcitrate + Vit D Caplet PO 2 tablet BID LAURIE Administration Famotidine 20 mg 04/16/19 09:00 04/18/19 08:31 Pepcid PO 20 mg DAILY LAURIE Administration Fish Oil 1 gm 04/16/19 09:00 04/18/19 08:29 Lovaza PO 1 gm DAILY LAURIE Administration Ibuprofen 400 mg 04/15/19 18:20 04/18/19 07:28 Motrin PO
[2019-04-18 14:00] VITALS: BP 116/55; PULSE 84; RESP 18; TEMP 36.5; O2SAT 96
--- NOTE | 2019-04-18 15:42 | PM.PNORT ---
Progress Note: A&P Assessment and Plan (1) Sacral fracture, closed: Onset Date: 04/01/19 Qualifiers: Encounter type: initial encounter Zone of sacrum fracture: unspecified portion of sacrum Qualified Code(s): S32.10XA - Unspecified fracture of sacrum, initial encounter for closed fracture Code(s): S32.10XA - Unspecified fracture of sacrum, initial encounter for closed fracture Status: Acute Assessment and Plan: 2.5 weeks status post fall with sacral fracture. Patient continuing with physical therapy and occupational therapy/ rehab with weight-bearing as tolerated. Pain improved with lumbar corset. Continue PT/OT / rehab with weight-bearing and activity as tolerated. Pain control. Discussed with patient should see some improvement in symptoms over the next week. Disposition per rehab. We will continue to follow. Subjective Subjective Date/Time Seen: 04/18/19 12:42 Patient complains of low back and pelvis pain. Worse with laying down supine and standing. Pain improved with sitting in wheelchair. Pain improved with lumbar corset brace and suma huang ointment. Review of Systems Constitutional: Constitutional: Denies chills and Reports weakness (B/L LE) Eyes: Eyes: Reports no additional eye complaints ENT: Reports Normal hearing present Cardiovascular: Cardiovascular: Denies chest pain and Denies lightheadedness Respiratory: Respiratory: Denies dyspnea Gastrointestinal: Gastrointestinal: Reports diarrhea (Intermittent incontinence of loose stool ), Denies nausea and Denies vomiting Genitourinary: Genitourinary: Denies urinary incontinence Musculoskeletal: Musculoskeletal: Reports as per HPI, Reports back pain (Lumbar Back Pain ) and Denies neck pain Comments: Denies bilateral hip pain/bilateral knee pain Denies left shoulder pain Integumentary/Breasts: Skin/Breast: Reports system reviewed and no additional complaints, except as docu Neurologic: Reports system reviewed and no additional complaints, except as documented, Reports abnormal gait (pain ) and Denies numbness Psychiatric: Psychiatric: Reports confusion (with opioid use- resolved this afternoon ) Exam Const: General: No confusion Orientation/consciousness: patient oriented x3 and No confusion HENMT: Head: normal to inspection, normocephalic and atraumatic Eyes: Conjunctivae: conjunctivae normal Sclera: sclerae normal Neck: Neck: supple and nontender Chest: Chest palpation & inspection: normal inspection of the chest Resp: Effort & Inspection: normal respiratory effort and no audible wheezes Cardio: Rate: regular rate Rhythm: regular rhythm GI: GI Palp: No abdominal tenderness and Yes Soft to palpation : General: Yes deferred Back/Spine/Pelvis: Thoracic/Lumbar Spine: straight leg raise negative bilaterally and lumbar spinal tenderness at L5 ( Midline) Pelvis: buttock tenderness bilaterally Sacroiliac joints: bilaterally tender to palpation Sacrum: tenderness midline Skin: General skin exam: no rashes or lesions noted Neuro: General: patient oriented x3 and No confusion Extrem: General: capillary refill normal Right upper extremity: normal to inspection Left upper extremity: normal to inspection Right lower extremity: hip/thigh Details: tenderness Location: of the hip Location: posteriorly, ankle ( able to actively flex and extend ankle) Details: no tenderness and foot Details: normal capillary refill, toes with normal ROM, vascular exam Details: dorsalis pedis pulse present and normal capillary refill and motor-sensory exam Details: light-touch normal Location: in all toes; no tenderness Left lower extremity: normal to inspection, hip/thigh Details: tenderness Location: of the hip Location: posteriorly; no swelling, lower leg Details: no erythema and no localized swelling, ankle (no calf tenderness) Details: normal ROM; no tenderness and foot Details: normal capillary refill, vascular exam Details: d
[2019-04-18] MEDS: polyethylene glycoL 3350 17 GM POWD.PACK PO (20:42)
[2019-04-18 22:00] VITALS: BP 141/49; PULSE 60; RESP 18; TEMP 36.8; O2SAT 98
[2019-04-19 06:00] VITALS: BP 142/56; PULSE 55; RESP 19; TEMP 36.6; O2SAT 96
[2019-04-19] MEDS: ASPIRIN 325 MG TABLET PO (09:00)
[2019-04-19] MEDS: OMEGA 3 POLYUNSAT FATTY ACIDS 1 GM CAP PO (09:00)
[2019-04-19] MEDS: AMLODIPINE BESYLATE 5 MG TABLET PO (09:00)
[2019-04-19] MEDS: lisinopriL 20 MG TABLET PO (09:00)
[2019-04-19] MEDS: FAMOTIDINE 20 MG TABLET PO (09:00)
[2019-04-19] MEDS: ASCORBIC ACID 500 MG TABLET PO ×2 (09:00→18:10)
[2019-04-19] MEDS: IBUPROFEN 400 MG TABLET PO (09:26)
[2019-04-19 14:00] VITALS: BP 126/45; PULSE 66; RESP 18; TEMP 36.6; O2SAT 98
[2019-04-19 22:00] VITALS: BP 133/52; PULSE 58; RESP 18; TEMP 36.6; O2SAT 97
[2019-04-20 06:00] VITALS: BP 160/66; PULSE 57; RESP 18; TEMP 36.9; O2SAT 97
[2019-04-20] MEDS: ASPIRIN 325 MG TABLET PO (08:32)
[2019-04-20] MEDS: ASCORBIC ACID 500 MG TABLET PO ×2 (08:34→18:03)
[2019-04-20] MEDS: lisinopriL 20 MG TABLET PO (08:35)
[2019-04-20] MEDS: FAMOTIDINE 20 MG TABLET PO (08:35)
[2019-04-20] MEDS: AMLODIPINE BESYLATE 5 MG TABLET PO (08:35)
[2019-04-20] MEDS: OMEGA 3 POLYUNSAT FATTY ACIDS 1 GM CAP PO (08:35)
[2019-04-20] MEDS: IBUPROFEN 400 MG TABLET PO (08:59)
[2019-04-20 14:00] VITALS: BP 134/57; PULSE 60; RESP 16; TEMP 36.8; O2SAT 98
--- NOTE | 2019-04-20 14:20 | WPDNEURORHBP ---
Subjective Date/time seen: 04/20/19 14:20 Interval history: patient continues to have sacral pain however it is manageable it is about right time for her to have bladder training as the Puente catheter has been present for the convenience and for the pain Patient denies any fever chills sore throat nausea vomiting headache lateralizing paresthesias or focal weakness Review of Systems Constitutional: Constitutional: Reports no additional constitutional complaints Eyes: Eyes: Reports no additional eye complaints ENT: Reports system reviewed and no additional complaints, except as documented Cardiovascular: Cardiovascular: Reports no additional cardiovascular complaints Respiratory: Respiratory: Reports no additional respiratory complaints Gastrointestinal: Gastrointestinal: Reports no additional gastrointestinal complaints Genitourinary: Genitourinary: Reports no additional female genitourinary complaints Musculoskeletal: Musculoskeletal: Reports no additional musculoskeletal complaints Integumentary/Breasts: Skin/Breast: Reports system reviewed and no additional complaints, except as docu Neurologic: Reports system reviewed and no additional complaints, except as documented Psychiatric: Psychiatric: Reports no additional psychiatric complaints Functional Status Ambulation Ability Ability to Ambulate 10 Feet: Standby Assistance Ability to Ambulate 50 Feet With 2 Turns: Standby Assistance Ability to Ambulate 150 Feet: Standby Assistance Ambulation Assistive Devices: Walker, Wheeled Transfers Ability Ability to Transfer In/Out of Chair: Moderate Assistance X 1 Exam Const: General: comfortable and no acute distress HENMT: General nose exam: Normal nares present Mouth: Yes moist mucous membranes Eyes: General: appearance normal, both eyes and all related structures Neck: Neck: supple and no JVD Resp: Effort & Inspection: normal respiratory effort Auscultation: clear to auscultation bilaterally Cardio: Rate: regular rate Rhythm: regular rhythm GI: GI Palp: Yes Soft to palpation Auscultation: normal bowel sounds Skin: General skin exam: normal color and no rashes or lesions noted Neuro: Other: her generalized weakness particularly reference to lower extremities is getting better she is engage in therapy does not have any neurological findings Extrem: General: normal to inspection Objective Data Vital Signs Vital Signs: Vital Signs - 24 hr 04/19/19 22:00 04/20/19 06:00 Temperature 36.6 C 36.9 C Pulse Rate 58 L 57 L Respiratory Rate 18 18 Blood Pressure 133/52 L 160/66 H Pulse Oximetry 97 97 Intake/Output Intake/Output: Intake & Output 04/17/19 04/18/19 04/19/19/09/20 23:59 23:59 23:59 23:59 Intake Total 1710 1150 840 360 Output Total 1125 1700 700 550 Balance 585 -550 140 -190 Meds/Results Medications: Active Medications Generic Name Dose Route Start Last Admin Trade Name Freq PRN Reason Stop Dose Admin Acetaminophen 500 mg 04/15/19 18:20 Tylenol Tablet PO Q6H PRN pain rated 1-3 Amlodipine Besylate 5 mg 04/16/19 09:00 04/20/19 08:35 Norvasc PO 5 mg DAILY LAURIE Administration Ascorbic Acid 500 mg 04/16/19 09:00 04/20/19 08:34 Vitamin C PO 500 mg BID LAURIE Administration Aspirin 325 mg 04/16/19 09:00 04/20/19 08:32 Aspirin PO 325 mg DAILY LAURIE Administration Calcium Citrate 2 tablet 04/17/19 09:00 04/20/19 08:35 Calcitrate + Vit D Caplet PO 2 tablet BID LAURIE Administration Famotidine 20 mg 04/16/19 09:00 04/20/19 08:35 Pepcid PO 20 mg DAILY LAURIE Administration Fish Oil 1 gm 04/16/19 09:00 04/20/19 08:35 Lovaza PO 1 gm DAILY LAURIE Administration Ibuprofen 400 mg 04/15/19 18:20 04/20/19 08:59 Motrin PO 400 mg Q4H PRN Administration Pain Rated 4-6 Lisinopril 20 mg 04/16/19 09:00 04/20/19 08:35 Prinivil PO 20 mg DAILY LAURIE Administration Menthol/Methyl Salicylate 1 misha
[2019-04-20 22:00] VITALS: BP 126/45; PULSE 101; RESP 20; TEMP 36.4; O2SAT 98
[2019-04-21 06:00] VITALS: BP 130/52; PULSE 88; RESP 18; TEMP 36.6; O2SAT 76
[2019-04-21] MEDS: IBUPROFEN 400 MG TABLET PO ×2 (09:57→20:43)
[2019-04-21] MEDS: AMLODIPINE BESYLATE 5 MG TABLET PO (09:58)
[2019-04-21] MEDS: lisinopriL 20 MG TABLET PO (09:58)
[2019-04-21] MEDS: ASCORBIC ACID 500 MG TABLET PO ×2 (09:58→17:44)
[2019-04-21] MEDS: FAMOTIDINE 20 MG TABLET PO (09:58)
[2019-04-21] MEDS: ASPIRIN 325 MG TABLET PO (09:59)
[2019-04-21] MEDS: OMEGA 3 POLYUNSAT FATTY ACIDS 1 GM CAP PO (09:59)
[2019-04-21 10:03] VITALS: BP 141/45; PULSE 73
[2019-04-21 14:00] VITALS: BP 177/78; PULSE 63; RESP 18; TEMP 36.7; O2SAT 100
--- NOTE | 2019-04-21 14:14 | PCDIET ---
Nutrition Follow-Up Complete: Inadequate energy intake related to normally low appetite at home and increased needs as evidenced by pateint's report of home diet and calculated needs of 1715-1887kcals and 52-65kg protein. Patient will consume greater than 75% of all meals. Goa met./l: Patient has consumed 50-100% of meals. Pt current nutrition is . Nutrition recommendation: Last recorded weight is 65 kg. Bowel Motility: Labs Reviewed: Meds Noted: Additional Notes: Will monitor labs, weight, and intake. Will follow up in 5 days.
--- NOTE | 2019-04-21 14:16 | PCDIET ---
Nutrition Follow-Up Complete: Inadequate energy intake related to normally low appetite at home and increased needs as evidenced by pateint's report of home diet and calculated needs of 1715-1887kcals and 52-65kg protein. Patient will consume greater than 75% of all meals. Goal met. Pt's meal consumption average is 88%. Nutrition recommendation: Continuation of Heart Healthy diet as patient is eating well and it provides adequate nutrition to meet her needs. Last recorded weight is 65 kg. Bowel Motility: +BM 04/20 Labs Reviewed: Na(136) K(4.6), GFR(39), Cr(1.3), Glu(94) Meds Noted:Vit C, ultram, miralax, pepcid, lovaza Additional Notes: Pt states no GI issues, except sometimes she feels nauseous during therapy. However, after she takes a quick break, the nausea is gone. Pt says appetite is good and eating well. Will monitor labs, weight, and intake. Will follow up in 5 days.
--- NOTE | 2019-04-21 15:41 | PCNSR ---
On 04/21/19, the student, Karine Harrison, provided care and completed [facility] documentation on this patient. I have reviewed the student's documentation and agree with the findings.
[2019-04-21 22:00] VITALS: BP 131/51; PULSE 57; RESP 18; TEMP 36.7; O2SAT 97
[2019-04-22 05:58] VITALS: BP 136/64; PULSE 68; RESP 18; TEMP 36.8; O2SAT 98
[2019-04-22] MEDS: AMLODIPINE BESYLATE 5 MG TABLET PO (08:22)
[2019-04-22] MEDS: FAMOTIDINE 20 MG TABLET PO (08:22)
[2019-04-22] MEDS: lisinopriL 20 MG TABLET PO (08:22)
[2019-04-22] MEDS: ASCORBIC ACID 500 MG TABLET PO ×2 (08:22→17:47)
[2019-04-22] MEDS: ASPIRIN 325 MG TABLET PO (08:22)
[2019-04-22] MEDS: OMEGA 3 POLYUNSAT FATTY ACIDS 1 GM CAP PO (08:23)
--- NOTE | 2019-04-22 12:38 | WPDNEURORHBP ---
Subjective Date/time seen: 04/22/19 12:38 Interval history: Dolly is here for nondisplaced bilateral sacral fracture she is wearing the brace her Puente catheter was taken out of earlier this morning and she has widening fairly well since then she does not have any complains of fever chills sore throat chest pain shortness of breath headache nausea vomiting with the lumbar corset she is walking better with the walker Review of Systems Constitutional: Constitutional: Reports no additional constitutional complaints Eyes: Eyes: Reports no additional eye complaints ENT: Reports system reviewed and no additional complaints, except as documented Cardiovascular: Cardiovascular: Reports no additional cardiovascular complaints Respiratory: Respiratory: Reports no additional respiratory complaints Gastrointestinal: Gastrointestinal: Reports no additional gastrointestinal complaints Genitourinary: Genitourinary: Reports no additional female genitourinary complaints Musculoskeletal: Musculoskeletal: Reports no additional musculoskeletal complaints Integumentary/Breasts: Skin/Breast: Reports system reviewed and no additional complaints, except as docu Neurologic: Reports system reviewed and no additional complaints, except as documented Psychiatric: Psychiatric: Reports no additional psychiatric complaints Functional Status Ambulation Ability Ability to Ambulate 10 Feet: Independent Ability to Ambulate 50 Feet With 2 Turns: Independent Ability to Ambulate 150 Feet: Standby Assistance Ambulation Assistive Devices: Walker, Wheeled Transfers Ability Ability to Transfer In/Out of Chair: Moderate Assistance X 1 Exam Const: General: comfortable and no acute distress HENMT: General nose exam: Normal nares present Mouth: Yes moist mucous membranes Eyes: General: appearance normal, both eyes and all related structures Neck: Neck: supple and no JVD Resp: Effort & Inspection: normal respiratory effort Auscultation: clear to auscultation bilaterally Cardio: Rate: regular rate Rhythm: regular rhythm GI: GI Palp: Yes Soft to palpation Auscultation: normal bowel sounds Skin: General skin exam: normal color and no rashes or lesions noted Neuro: Other: for an 83 years old she has a fairly decent Mental State examination normal cranial examination she is walking with a walker without any lateralizing focal motor sensory deficit deficit and strength asthma improving Extrem: General: normal to inspection Objective Data Vital Signs Vital Signs: Vital Signs - 24 hr 04/21/19 14:00 04/21/19 22:00 04/22/19 05:58 Temperature 36.7 C 36.7 C 36.8 C Pulse Rate 63 57 L 68 Respiratory Rate 18 18 18 Blood Pressure 177/78 H 131/51 L 136/64 Pulse Oximetry 100 97 98 Intake/Output Intake/Output: Intake & Output 04/19/19 04/20/19 04/21/19 04/22/19 23:59 23:59 23:59 23:59 Intake Total 840 1860 1140 610 Output Total 700 1550 2800 600 Balance 140 310 -1660 10 Meds/Results Medications: Active Medications Generic Name Dose Route Start Last Admin Trade Name Freq PRN Reason Stop Dose Admin Acetaminophen 500 mg 04/15/19 18:20 Tylenol Tablet PO Q6H PRN pain rated 1-3 Amlodipine Besylate 5 mg 04/16/19 09:00 04/22/19 08:22 Norvasc PO 5 mg DAILY LAURIE Administration Ascorbic Acid 500 mg 04/16/19 09:00 04/22/19 08:22 Vitamin C PO 500 mg BID LAURIE Administration Aspirin 325 mg 04/16/19 09:00 04/22/19 08:22 Aspirin PO 325 mg DAILY LAURIE Administration Calcium Citrate 2 tablet 04/17/19 09:00 04/22/19 08:22 Calcitrate + Vit D Caplet PO 2 tablet BID LAURIE Administration Famotidine 20 mg 04/16/19 09:00 04/22/19 08:22 Pepcid PO 20 mg DAILY LAURIE Administration Fish Oil 1 gm 04/16/19 09:00 04/22/19 08:23 Lovaza PO 1 gm DAILY LAURIE Administration Ibuprofen 400 mg 04/15/19 18:20 04/21/19 20:43 Motrin PO 400 mg Q4H PRN Administration Pain Rated
[2019-04-22 14:00] VITALS: BP 157/51; PULSE 70; RESP 20; TEMP 36.3; O2SAT 100
--- NOTE | 2019-04-22 15:20 | PCCCNOTE ---
On 04/22/19, the student, [Praveen Taveras ], provided care and completed [facility] documentation on this patient. I have reviewed the student's documentation and agree with the findings.
[2019-04-22] MEDS: ACETAMINOPHEN 500 MG TABLET PO (17:56)
[2019-04-22 22:00] VITALS: BP 141/56; PULSE 72; RESP 20; TEMP 36.4; O2SAT 98
[2019-04-23] MEDS: IBUPROFEN 400 MG TABLET PO ×2 (02:15→20:03)
[2019-04-23 05:01] LABS: Basophils Absolute Auto 0.1 K/mm3 (0.0-0.1); Basophils Percent Auto 0.7 % (0.2-1.2); Eosinophils Absolute Auto 0.3 K/mm3 (0-0.3); Eosinophils Percent Auto 3.7 % (0-4.4); Hematocrit 35.3 % (37.0-47.0); Hemoglobin 11.1 g/dL (12.0-15.0); Immature Granulocyte Absolute 0.06 K/mm3 (0.00-0.031); Immature Granulocyte Percent A 0.7 % (0-0.5); Lymphocytes Absolute Auto 1.66 K/mm3 (0.9-3.2); Mean Corpuscular HGB Conc 31.4 g/dl (32-36); Mean Corpuscular Hemoglobin 29.4 pg (26-34); Mean Corpuscular Volume 93.6 fl (80-100); Mean Platelet Volume 9.7 fl (7.4-10.4); Monocytes Absolute Auto 0.9 K/mm3 (0.1-0.6); Neutrophils Absolute Auto 5.8 K/mm3 (1.3-6.7); Neutrophils Percent Auto 65.9 % (45.5-73.1); Platelet Count Result 372 k/mm3 (150-375); Red Blood Count 3.77 M/mm3 (4.2-5.4); Red Cell Distribution Width 12.8 % (11.5-14.5); White Blood Count 8.7 K/mm3 (4.5-10.0)
[2019-04-23 05:18] LABS: Blood Urea Nitrogen 44 mg/dL (7-17); Calcium 8.6 mg/dL (8.4-10.2); Carbon Dioxide 26 mmol/L (22-30); Chloride 103 mmol/L (98-107); Estimated CRCL calculation 28 ml/min; Estimated Glomerular Filt Rate 43; Glucose 93 mg/dL (65-105); Sodium 137 mmol/L (137-145)
[2019-04-23 06:00] VITALS: PULSE 18; RESP 72; TEMP 36.4; O2SAT 97
[2019-04-23] MEDS: ASPIRIN 325 MG TABLET PO (08:34)
[2019-04-23] MEDS: AMLODIPINE BESYLATE 5 MG TABLET PO (08:35)
[2019-04-23] MEDS: ASCORBIC ACID 500 MG TABLET PO ×2 (08:35→17:06)
[2019-04-23] MEDS: OMEGA 3 POLYUNSAT FATTY ACIDS 1 GM CAP PO (08:35)
[2019-04-23] MEDS: FAMOTIDINE 20 MG TABLET PO (08:35)
[2019-04-23] MEDS: lisinopriL 20 MG TABLET PO (08:35)
--- NOTE | 2019-04-23 11:09 | WPDNEURORHBP ---
Subjective Date/time seen: 04/23/19 11:09 Interval history: patient is here by bilateral nondisplaced sacral fracture and doing fairly well pain control is better and she is engage in therapy quite well She denies any headache nausea vomiting chest pain shortness of breath belly ache abdominal pain fever chills Review of Systems Constitutional: Constitutional: Reports no additional constitutional complaints Eyes: Eyes: Reports no additional eye complaints ENT: Reports system reviewed and no additional complaints, except as documented Cardiovascular: Cardiovascular: Reports no additional cardiovascular complaints Respiratory: Respiratory: Reports no additional respiratory complaints Gastrointestinal: Gastrointestinal: Reports no additional gastrointestinal complaints Genitourinary: Genitourinary: Reports no additional female genitourinary complaints Musculoskeletal: Musculoskeletal: Reports no additional musculoskeletal complaints Integumentary/Breasts: Skin/Breast: Reports system reviewed and no additional complaints, except as docu Neurologic: Reports system reviewed and no additional complaints, except as documented Psychiatric: Psychiatric: Reports no additional psychiatric complaints Functional Status Ambulation Ability Ability to Ambulate 10 Feet: Independent Ability to Ambulate 50 Feet With 2 Turns: Independent Ability to Ambulate 150 Feet: Independent Ambulation Assistive Devices: Walker, Wheeled Transfers Ability Ability to Transfer In/Out of Chair: Standby Assistance Exam Const: General: comfortable and no acute distress HENMT: General nose exam: Normal nares present Mouth: Yes moist mucous membranes Eyes: General: appearance normal, both eyes and all related structures Neck: Neck: supple and no JVD Resp: Effort & Inspection: normal respiratory effort Auscultation: clear to auscultation bilaterally Cardio: Rate: regular rate Rhythm: regular rhythm GI: GI Palp: Yes Soft to palpation Auscultation: normal bowel sounds Back/Spine/Pelvis: Other: pain in the lumbosacral area of from the sacral fracture is fairly decently controlled she is wearing the brace most the time it helps Skin: General skin exam: normal color and no rashes or lesions noted Neuro: Other: remains alert well oriented time place and person with normal speech and language function normal cranial examination and improving strength in both upper and lower extremities and able to engage in therapy quite well Extrem: General: normal to inspection Objective Data Vital Signs Vital Signs: Vital Signs - 24 hr 04/22/19 14:00 04/22/19 22:00 04/23/19 06:00 Temperature 36.3 C L 36.4 C 36.4 C Pulse Rate 70 72 18 L Respiratory Rate 20 20 72 H Blood Pressure 157/51 H 141/56 H Pulse Oximetry 100 98 97 Intake/Output Intake/Output: Intake & Output 04/20/19 04/21/19 04/22/19 04/23/19 23:59 23:59 23:59 23:59 Intake Total 1860 1140 1090 240 Output Total 1550 2800 600 Balance 310 -1660 490 240 Meds/Results Medications: Active Medications Generic Name Dose Route Start Last Admin Trade Name Freq PRN Reason Stop Dose Admin Acetaminophen 500 mg 04/15/19 18:20 04/22/19 17:56 Tylenol Tablet PO 500 mg Q6H PRN Administration pain rated 1-3 Amlodipine Besylate 5 mg 04/16/19 09:00 04/23/19 08:35 Norvasc PO 5 mg DAILY LAURIE Administration Ascorbic Acid 500 mg 04/16/19 09:00 04/23/19 08:35 Vitamin C PO 500 mg BID LAURIE Administration Aspirin 325 mg 04/16/19 09:00 04/23/19 08:34 Aspirin PO 325 mg DAILY LAURIE Administration Calcium Citrate 2 tablet 04/17/19 09:00 04/23/19 08:35 Calcitrate + Vit D Caplet PO 2 tablet BID LAURIE Administration Famotidine 20 mg 04/16/19 09:00 04/23/19 08:35 Pepcid PO 20 mg DAILY LAURIE Administration Fish Oil 1 gm 04/16/19 09:00 04/23/19 08:35 Lovaza PO 1 gm DAILY LAURIE Administration Ibuprofen 400 mg 04/15/19 18:20
[2019-04-23 14:00] VITALS: BP 142/46; PULSE 64; RESP 18; TEMP 36.8; O2SAT 100
[2019-04-23 22:00] VITALS: BP 152/51; PULSE 62; RESP 19; TEMP 36.7; O2SAT 99
[2019-04-24 06:00] VITALS: BP 148/42; PULSE 71; RESP 18; TEMP 36.3; O2SAT 98
[2019-04-24] MEDS: ASPIRIN 325 MG TABLET PO (08:43)
[2019-04-24] MEDS: FAMOTIDINE 20 MG TABLET PO (08:44)
[2019-04-24] MEDS: AMLODIPINE BESYLATE 5 MG TABLET PO (08:44)
[2019-04-24] MEDS: ASCORBIC ACID 500 MG TABLET PO ×2 (08:44→17:50)
[2019-04-24] MEDS: OMEGA 3 POLYUNSAT FATTY ACIDS 1 GM CAP PO (08:44)
[2019-04-24] MEDS: lisinopriL 20 MG TABLET PO (08:44)
--- NOTE | 2019-04-24 13:42 | PCDIET ---
Nutrition Follow-Up Complete: Inadequate energy intake related to normally low appetite at home and increased needs as evidenced by pateint's report of home diet and calculated needs of 1715-1887kcals and 52-65kg protein. Patient will consume greater than 75% of all meals. Goal met. Pt is consuming 100% of meals. Nutrition recommendation: Recommend continuation of Heart Healthy diet to provide the pt adequate nutrition. Last recorded weight is 65 kg. Bowel Motility: +BM2/12 Labs Reviewed:Hgb(11.1), Na(137), K(5.0), GFR(43), Cr(1.2), Glu(93) Meds Noted:Vitamin C, calcitrate + vitamin D, Miralax, Ultram, Pepcid Additional Notes: Pt states appetite is good. No N/V or abdominal pain reported. Will monitor labs, weight, and intake. Will follow up in 5 days.
[2019-04-24 14:00] VITALS: BP 132/50; PULSE 64; RESP 18; TEMP 36.5; O2SAT 100
--- NOTE | 2019-04-24 14:46 | PCNSR ---
On 04/24/19, the student, Karine Harrison provided care and completed [facility] documentation on this patient. I have reviewed the student's documentation and agree with the findings.
[2019-04-24 22:00] VITALS: BP 134/61; PULSE 57; RESP 17; TEMP 36.8; O2SAT 100
[2019-04-25] MEDS: IBUPROFEN 400 MG TABLET PO ×2 (00:26→20:09)
[2019-04-25 06:00] VITALS: BP 125/58; PULSE 54; RESP 18; TEMP 36.6; O2SAT 98
[2019-04-25] MEDS: ASCORBIC ACID 500 MG TABLET PO ×2 (08:47→17:54)
[2019-04-25] MEDS: AMLODIPINE BESYLATE 5 MG TABLET PO (08:47)
[2019-04-25] MEDS: FAMOTIDINE 20 MG TABLET PO (08:48)
[2019-04-25] MEDS: OMEGA 3 POLYUNSAT FATTY ACIDS 1 GM CAP PO (08:48)
[2019-04-25] MEDS: lisinopriL 20 MG TABLET PO (08:48)
[2019-04-25] MEDS: ASPIRIN 325 MG TABLET PO (08:48)
[2019-04-25 14:00] VITALS: BP 128/48; PULSE 62; RESP 17; TEMP 36.8; O2SAT 98
--- NOTE | 2019-04-25 15:01 | WPDNEURORHBP ---
Subjective Date/time seen: 04/25/19 15:01 Interval history: patient's pain from the sacral fracture is fairly stable and she is engage in therapy however is scared to go home independently because of the fear of the fall which has caused her to have sacral fractures to begin with she needed counseling reassurance and repeated counseling that she should be able to do it provided she takes her time and do the activities as she has been taught to do He denies any headache chest pain shortness of breath nausea vomiting Review of Systems Constitutional: Constitutional: Reports no additional constitutional complaints Eyes: Eyes: Reports no additional eye complaints ENT: Reports system reviewed and no additional complaints, except as documented Cardiovascular: Cardiovascular: Reports no additional cardiovascular complaints Respiratory: Respiratory: Reports no additional respiratory complaints Gastrointestinal: Gastrointestinal: Reports no additional gastrointestinal complaints Genitourinary: Genitourinary: Reports no additional female genitourinary complaints Musculoskeletal: Musculoskeletal: Reports no additional musculoskeletal complaints Integumentary/Breasts: Skin/Breast: Reports system reviewed and no additional complaints, except as docu Neurologic: Reports system reviewed and no additional complaints, except as documented Psychiatric: Psychiatric: Reports no additional psychiatric complaints Functional Status Ambulation Ability Ability to Ambulate 10 Feet: Independent Ability to Ambulate 50 Feet With 2 Turns: Independent Ability to Ambulate 150 Feet: Independent Ambulation Assistive Devices: Walker, Wheeled Transfers Ability Ability to Transfer In/Out of Chair: Standby Assistance Exam Const: General: comfortable and no acute distress HENMT: General nose exam: Normal nares present Mouth: Yes moist mucous membranes Eyes: General: appearance normal, both eyes and all related structures Neck: Neck: supple and no JVD Resp: Effort & Inspection: normal respiratory effort Auscultation: clear to auscultation bilaterally Cardio: Rate: regular rate Rhythm: regular rhythm GI: GI Palp: Yes Soft to palpation Auscultation: normal bowel sounds Skin: General skin exam: normal color and no rashes or lesions noted Neuro: Other: patient's remains awake and alert well oriented time place and person with normal speech and language functions normal cranial examination symmetrical strength in the upper extremities decreased strength in the lower extremities however able to engage in therapy with the lumbosacral support which she keeps it on when she is up and around Extrem: General: normal to inspection Objective Data Vital Signs Vital Signs: Vital Signs - 24 hr 04/24/19 22:04/25/19 06:00 Temperature 36.8 C 36.6 C Pulse Rate 57 L 54 L Respiratory Rate 17 18 Blood Pressure 134/61 125/58 L Pulse Oximetry 100 98 Intake/Output Intake/Output: Intake & Output 04/22/19 04/23/19 04/24/19 04/25/19 23:59 23:59 23:59 23:59 Intake Total 1090 880 960 120 Output Total 600 Balance 490 880 960 120 Meds/Results Medications: Active Medications Generic Name Dose Route Start Last Admin Trade Name Freq PRN Reason Stop Dose Admin Acetaminophen 500 mg 04/15/19 18:20 04/22/19 17:56 Tylenol Tablet PO 500 mg Q6H PRN Administration pain rated 1-3 Amlodipine Besylate 5 mg 04/16/19 09:00 04/25/19 08:47 Norvasc PO 5 mg DAILY LAURIE Administration Ascorbic Acid 500 mg 04/16/19 09:00 04/25/19 08:47 Vitamin C PO 500 mg BID LAURIE Administration Aspirin 325 mg 04/16/19 09:00 04/25/19 08:48 Aspirin PO 325 mg DAILY LAURIE Administration Calcium Citrate 2 tablet 04/17/19 09:00 04/25/19 08:48 Calcitrate + Vit D Caplet PO 2 tablet BID LAURIE Administration Famotidine 20 mg 04/16/19 09:00 04/25/19 08:48 Pepcid PO 20 mg DAILY LAURIE Administration Fish Oil 1 gm 0
[2019-04-25 22:00] VITALS: BP 140/56; PULSE 63; RESP 18; TEMP 36.5; O2SAT 100
[2019-04-26] MEDS: IBUPROFEN 400 MG TABLET PO ×2 (01:44→20:23)
[2019-04-26 06:00] VITALS: BP 132/50; PULSE 68; RESP 18; TEMP 36.3; O2SAT 100
[2019-04-26] MEDS: ASCORBIC ACID 500 MG TABLET PO ×2 (08:38→17:01)
[2019-04-26] MEDS: AMLODIPINE BESYLATE 5 MG TABLET PO (08:38)
[2019-04-26] MEDS: FAMOTIDINE 20 MG TABLET PO (08:39)
[2019-04-26] MEDS: lisinopriL 20 MG TABLET PO (08:39)
[2019-04-26] MEDS: OMEGA 3 POLYUNSAT FATTY ACIDS 1 GM CAP PO (08:39)
[2019-04-26] MEDS: ASPIRIN 325 MG TABLET PO (08:39)
--- NOTE | 2019-04-26 11:45 | WPDNEURORHBP ---
Subjective Date/time seen: April 26, 2019 at 11:45 a.m. a Interval history: this very pleasant 83-year-old woman is here on the acute rehab after sustaining by sacral fracture after a fall her pain control is much better she is engage in therapy quite well however still is kind of scared going home in the coming week however has been counseled about it on many occasions and she feels relatively more comfortable going home than the previous several days she denies any headache chest pain shortness of breath nausea vomiting double vision blurred vision or lateralizing focal motor weakness the weakness in the lower extremities is improving quite a bit Review of Systems Constitutional: Constitutional: Reports no additional constitutional complaints Eyes: Eyes: Reports no additional eye complaints ENT: Reports system reviewed and no additional complaints, except as documented Cardiovascular: Cardiovascular: Reports no additional cardiovascular complaints Respiratory: Respiratory: Reports no additional respiratory complaints Gastrointestinal: Gastrointestinal: Reports no additional gastrointestinal complaints Genitourinary: Genitourinary: Reports no additional female genitourinary complaints Musculoskeletal: Musculoskeletal: Reports no additional musculoskeletal complaints Integumentary/Breasts: Skin/Breast: Reports system reviewed and no additional complaints, except as docu Neurologic: Reports system reviewed and no additional complaints, except as documented Psychiatric: Psychiatric: Reports no additional psychiatric complaints Functional Status Ambulation Ability Ability to Ambulate 10 Feet: Independent Ability to Ambulate 50 Feet With 2 Turns: Independent Ability to Ambulate 150 Feet: Independent Ambulation Assistive Devices: Walker, Wheeled Transfers Ability Ability to Transfer In/Out of Chair: Independent Exam Const: General: comfortable and no acute distress HENMT: General nose exam: Normal nares present Mouth: Yes moist mucous membranes Eyes: General: appearance normal, both eyes and all related structures Neck: Neck: supple and no JVD Resp: Effort & Inspection: normal respiratory effort Auscultation: clear to auscultation bilaterally Cardio: Rate: regular rate Rhythm: regular rhythm GI: GI Palp: Yes Soft to palpation Auscultation: normal bowel sounds Skin: General skin exam: normal color and no rashes or lesions noted Neuro: Other: patient is awake and alert well oriented time place and person has a decent mental status examination for an 83-year-old woman she has not any distress her weakness in the lower extremities is improving and she is wearing the brace for the fracture which has been helping her quite a bit when she is up and around Extrem: General: normal to inspection Objective Data Vital Signs Vital Signs: Vital Signs - 24 hr 04/26/19 14:00 04/26/19 22:00 04/27/19 06:00 Temperature 36.6 C 36.5 C 36.3 C L Pulse Rate 61 55 L 60 Respiratory Rate 16 18 18 Blood Pressure 130/47 L 119/46 L 126/56 L Pulse Oximetry 98 96 98 04/27/19 08:00 Temperature Pulse Rate 60 Respiratory Rate 18 Blood Pressure Pulse Oximetry 98 Intake/Output Intake/Output: Intake & Output 04/24/19 04/25/19 04/26/19 04/27/19 23:59 23:59 23:59 23:59 Intake Total 960 480 720 480 Balance 960 480 720 480 Meds/Results Medications: Active Medications Generic Name Dose Route Start Last Admin Trade Name Freq PRN Reason Stop Dose Admin Acetaminophen 500 mg 04/15/19 18:20 04/22/19 17:56 Tylenol Tablet PO 500 mg Q6H PRN Administration pain rated 1-3 Amlodipine Besylate 5 mg 04/16/19 09:00 04/27/19 09:41 Norvasc PO 5 mg DAILY LAURIE Administration Ascorbic Acid 500 mg 04/16/19 09:00 04/27/19 09:41 Vitamin C PO 500 mg BID LAURIE Administration Aspirin 325 mg 04/16/19 09:00 04/27/19 09:41 Aspirin PO 325 mg DAILY LAURIE Administration Calcium Citrate 2
[2019-04-26 14:00] VITALS: BP 130/47; PULSE 61; RESP 16; TEMP 36.6; O2SAT 98
[2019-04-26 22:00] VITALS: BP 119/46; PULSE 55; RESP 18; TEMP 36.5; O2SAT 96
[2019-04-27 06:00] VITALS: BP 126/56; PULSE 60; RESP 18; TEMP 36.3; O2SAT 98
[2019-04-27 08:00] VITALS: PULSE 60; RESP 18; O2SAT 98
[2019-04-27] MEDS: ASPIRIN 325 MG TABLET PO (09:41)
[2019-04-27] MEDS: AMLODIPINE BESYLATE 5 MG TABLET PO (09:41)
[2019-04-27] MEDS: lisinopriL 20 MG TABLET PO (09:41)
[2019-04-27] MEDS: OMEGA 3 POLYUNSAT FATTY ACIDS 1 GM CAP PO (09:41)
[2019-04-27] MEDS: ASCORBIC ACID 500 MG TABLET PO ×2 (09:41→17:38)
[2019-04-27] MEDS: FAMOTIDINE 20 MG TABLET PO (09:41)
[2019-04-27 14:00] VITALS: BP 142/45; PULSE 64; RESP 18; TEMP 36.8; O2SAT 100
--- NOTE | 2019-04-27 14:26 | WPDNEURORHBP ---
Subjective Date/time seen: 04/27/19 14:26 Interval history: this pleasant 83-year-old woman is here after sustaining bilateral sacral fracture for which she is using the brace and doing fairly well with much less pain than she came in with denies any fever chills sore throat headache nausea vomiting abdominal pain urinary incontinence or anything else Review of Systems Constitutional: Constitutional: Reports no additional constitutional complaints Eyes: Eyes: Reports no additional eye complaints ENT: Reports system reviewed and no additional complaints, except as documented Cardiovascular: Cardiovascular: Reports no additional cardiovascular complaints Respiratory: Respiratory: Reports no additional respiratory complaints Gastrointestinal: Gastrointestinal: Reports no additional gastrointestinal complaints Genitourinary: Genitourinary: Reports no additional female genitourinary complaints Musculoskeletal: Musculoskeletal: Reports no additional musculoskeletal complaints Integumentary/Breasts: Skin/Breast: Reports system reviewed and no additional complaints, except as docu Neurologic: Reports system reviewed and no additional complaints, except as documented Psychiatric: Psychiatric: Reports no additional psychiatric complaints Functional Status Ambulation Ability Ability to Ambulate 10 Feet: Independent Ability to Ambulate 50 Feet With 2 Turns: Independent Ability to Ambulate 150 Feet: Independent Ambulation Assistive Devices: Walker, Wheeled Transfers Ability Ability to Transfer In/Out of Chair: Independent Exam Const: General: comfortable and no acute distress HENMT: General nose exam: Normal nares present Mouth: Yes moist mucous membranes Eyes: General: appearance normal, both eyes and all related structures Neck: Neck: supple and no JVD Resp: Effort & Inspection: normal respiratory effort Auscultation: clear to auscultation bilaterally Cardio: Rate: regular rate Rhythm: regular rhythm GI: GI Palp: Yes Soft to palpation Auscultation: normal bowel sounds : External Female Exam: normal external appearance Skin: General skin exam: normal color and no rashes or lesions noted Neuro: Other: the mental status is normal,, the upper lower extremity strength has improved significantly and the patient has done much better in the past several days Extrem: General: normal to inspection Objective Data Vital Signs Vital Signs: Vital Signs - 24 hr 04/26/19 22:00 04/27/19 06:00 04/27/19 08:00 Temperature 36.5 C 36.3 C L Pulse Rate 55 L 60 60 Respiratory Rate 18 18 18 Blood Pressure 119/46 L 126/56 L Pulse Oximetry 96 98 98 Intake/Output Intake/Output: Intake & Output 04/24/19 04/25/19 04/26/19 04/27/19 23:59 23:59 23:59 23:59 Intake Total 960 480 720 840 Balance 960 480 720 840 Meds/Results Medications: Active Medications Generic Name Dose Route Start Last Admin Trade Name Freq PRN Reason Stop Dose Admin Acetaminophen 500 mg 04/15/19 18:20 04/22/19 17:56 Tylenol Tablet PO 500 mg Q6H PRN Administration pain rated 1-3 Amlodipine Besylate 5 mg 04/16/19 09:00 04/27/19 09:41 Norvasc PO 5 mg DAILY LAURIE Administration Ascorbic Acid 500 mg 04/16/19 09:00 04/27/19 09:41 Vitamin C PO 500 mg BID LAURIE Administration Aspirin 325 mg 04/16/19 09:00 04/27/19 09:41 Aspirin PO 325 mg DAILY LAURIE Administration Calcium Citrate 2 tablet 04/17/19 09:00 04/27/19 09:41 Calcitrate + Vit D Caplet PO 2 tablet BID LAURIE Administration Famotidine 20 mg 04/16/19 09:00 04/27/19 09:41 Pepcid PO 20 mg DAILY LAURIE Administration Fish Oil 1 gm 04/16/19 09:00 04/27/19 09:41 Lovaza PO 1 gm DAILY LAURIE Administration Ibuprofen 400 mg 04/15/19 18:20 04/26/19 20:23 Motrin PO 400 mg Q4H PRN Administration Pain Rated 4-6 Lisinopril 20 mg 04/16/19 09:00 04/27/19 09:41 Prinivil PO 20 mg DAILY LAURIE Administ
[2019-04-27] MEDS: IBUPROFEN 400 MG TABLET PO (20:22)
[2019-04-27 22:00] VITALS: BP 145/57; PULSE 63; RESP 17; TEMP 36.7; O2SAT 100
[2019-04-28 06:00] VITALS: BP 149/38; PULSE 56; RESP 18; TEMP 36.2; O2SAT 100
[2019-04-28] MEDS: OMEGA 3 POLYUNSAT FATTY ACIDS 1 GM CAP PO (09:36)
[2019-04-28] MEDS: ASPIRIN 325 MG TABLET PO (09:36)
[2019-04-28] MEDS: ASCORBIC ACID 500 MG TABLET PO ×2 (09:37→17:04)
[2019-04-28] MEDS: FAMOTIDINE 20 MG TABLET PO (09:37)
[2019-04-28] MEDS: lisinopriL 20 MG TABLET PO (09:37)
[2019-04-28] MEDS: AMLODIPINE BESYLATE 5 MG TABLET PO (10:50)
[2019-04-28 14:00] VITALS: BP 129/44; PULSE 60; RESP 18; TEMP 36.6; O2SAT 91
[2019-04-28 22:00] VITALS: BP 134/64; PULSE 62; RESP 18; TEMP 36.9; O2SAT 100
[2019-04-29] MEDS: IBUPROFEN 400 MG TABLET PO (00:14)
[2019-04-29 06:00] VITALS: BP 126/54; PULSE 66; RESP 18; TEMP 36.8; O2SAT 100
[2019-04-29] MEDS: AMLODIPINE BESYLATE 5 MG TABLET PO (10:18)
[2019-04-29] MEDS: FAMOTIDINE 20 MG TABLET PO (10:19)
[2019-04-29] MEDS: lisinopriL 20 MG TABLET PO (10:19)
[2019-04-29] MEDS: ASCORBIC ACID 500 MG TABLET PO (10:19)
[2019-04-29] MEDS: ASPIRIN 325 MG TABLET PO (10:19)
[2019-04-29] MEDS: OMEGA 3 POLYUNSAT FATTY ACIDS 1 GM CAP PO (10:19)
--- NOTE | 2019-05-01 22:57 | DS_ITS ---
DATE OF DISCHARGE: 04/29/2019 DISCHARGE ACUTE REHAB DIAGNOSIS: Nondisplaced bilateral sacral fracture with primary rehab impairment category of orthopedic lower extremity fracture and the etiological diagnosis of nondisplaced bilateral sacral fractures. DISCHARGE ACTIVE COMORBID CONDITIONS: Include, 1. GERD. 2. Arthritis, particularly of spine with chronic pain. 3. Hypertension. 4. Anemia. 5. Hiatal hernia. 6. Hyperlipidemia. 7. History of DVT. REASON FOR ADMISSION: 83 years old right-handed female with past medical history of: 1. Right breast cancer. 2. Hypertension. 3. Right lower extremity DVT. Presented to [facility] with complaints of lower back pain subsequent to a fall at home about 10 days ago when she was getting out of the chair. Though she did not present to the emergency room at the time of initial fall, but she continued to have progressive debility, difficulties in ambulation because of pain and discomfort. 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 The patient opted for nonoperative management when orthopedics was consulted, but she was ordered to have a lumbar corset to fit by a record changer and treat with the nonnarcotic pain medication with weightbearing as tolerated. She was advised to have physical and occupational therapy and follow up with the orthopedic physician in about 5 weeks. She was noted to have transaminitis. For that right upper quadrant ultrasound was done with documented cholelithiasis without acute cholecystitis though the hepatitis panel was negative and she will be followed by the primary care physician as an outpatient for that particular problem. LEVEL OF FUNCTION AT THE TIME OF ADMISSION: The patient required setup for the eating and oral hygiene, substantial assistance for toileting, bathing, and lower body dressing. Partial assistance for upper body dressing and rolling in bed. She was dependent for the footwear. She required substantial assistance for sit to lying, lying to sitting and partial assistance for the sit to stand, chair transfer, toilet transfer, car transfer, walking 10 feet, picking up object, wheelchair for 50 feet. She was unable to car transfer, walk 50 feet with 2 turns, 150 feet carb or step, 4 steps, 12 steps, and wheelchair for 150 feet. LEVEL ANTICIPATED REHAB GOALS: At the time of admission were to make her independent in all the modalities. LEVEL OF FUNCTION AT THE TIME OF DISCHARGE: Patient became independent in all the modalities except she required the setup for bathing, upper body dressing, footwear. HOSPITAL COURSE: During the hospitalization, she was actively involved in the physical therapy and occupational therapy. She was followed by the orthopedic physician, Dr. Flo Cotto and at the time of discharge, her general physical examination was stable. Neurological examination was essentially unchanged and her vital signs were stable as well. She was able to ambulate up to 150 feet independently with a wheeled walker and transfer in and out of chair independently. DISCHARGE MEDICATIONS: Included, 1. Sid-Donnelly Ultra Strength 1 application twice a day. 2. Tylenol 500 mg q.6 hours. 3. Amlodipine 5 mg daily. 4. Ascorbate calcium 500 mg twice a day. 5. Aspirin 325 mg daily. 6. Calcium citrate 600 mg twice a day. 7. Famotidine 20 mg daily. 8. Ibuprofen 400 q.4 hours p.r.n. 9. Lisinopril 20 mg daily. 10. [place]-3 fatty acid 1000 mg daily. 11. MiraLAX 17 g daily. 12. Tramadol 50 mg q.6 hours p.r.n. DISCHARGE DESTINATION: Home with home health. FALLS AND INJURIES DURING THIS HOSPITALIZATION: None. D I
== END 2019-04-29 12:57 | disposition home health service (06) | DRG 561 ==
PROVIDERS: Admitting Provider Psychiatry & Neurology Neurology; PCP Family Medicine; Visit Provider Psychiatry & Neurology Neurology
DX: S32.19XD Other fracture of sacrum, subsequent encounter for fracture with routine healing (principal); D64.9 Anemia, unspecified; E78.5 Hyperlipidemia, unspecified; G89.29 Other chronic pain; I10 Essential (primary) hypertension; K44.9 Diaphragmatic hernia without obstruction or gangrene; K80.20 Calculus of gallbladder without cholecystitis without obstruction; K21.9 Gastro-esophageal reflux disease without esophagitis; M19.011 Primary osteoarthritis, right shoulder; M47.816 Spondylosis without myelopathy or radiculopathy, lumbar region; M81.0 Age-related osteoporosis without current pathological fracture; Z90.11 Acquired absence of right breast and nipple; Z86.718 Personal history of other venous thrombosis and embolism; Z92.3 Personal history of irradiation; Z96.651 Presence of right artificial knee joint; Z92.21 Personal history of antineoplastic chemotherapy; Z86.711 Personal history of pulmonary embolism; Z85.3 Personal history of malignant neoplasm of breast; Z86.11 Personal history of tuberculosis; W19.XXXD Unspecified fall, subsequent encounter
CPT/HCPCS: 36415; 80048; 85025; 97110; 97116; 97150; 97162; 97166; 97530; 97535; A9270

== ENCOUNTER → 2019-12-25 12:39 | Outpatient (CLI) | payer MEDICARE, SELFPAY ==
--- NOTE | ~2019-12-25 | MM_ITS ---
EXAMINATION: MM screening jase LT w yaakov HISTORY: Screening TECHNIQUE: Craniocaudal and mediolateral oblique 3-D tomosynthesis images were obtained and synthetic 2-D images were generated. CAD analysis was submitted and interpreted. COMPARISON: Comparison to multiple prior studies sequentially, with oldest reviewed study dated 02/10. BREAST PARENCHYMAL COMPOSITION: There are scattered areas of fibroglandular density. FINDINGS: There is no evidence of suspicious mass, calcification, or architectural distortion to sugg est malignancy in the left breast. There has been no suspicious interval change. IMPRESSION: 1. No mammographic evidence of malignancy. 2. Recommend routine screening mammography in one year. BI-RADS Category 1: Negative Reviewed, dictated and finalized at location A.
== END ==
PROVIDERS: PCP Family Medicine; Visit Provider Internal Medicine Medical Oncology
DX: Z12.31 Encounter for screening mammogram for malignant neoplasm of breast (principal)
CPT/HCPCS: 77063; 77067

== ENCOUNTER → 2021-01-26 13:02 | Outpatient (CLI) | payer MEDICARE, SELFPAY ==
--- NOTE | ~2021-01-26 | MM_ITS ---
EXAMINATION: MM screening jase LT w yaakov HISTORY: Screening left mammogram, history of right mastectomy TECHNIQUE: Craniocaudal and mediolateral oblique 3-D tomosynthesis images were obtained and synthetic 2-D images were generated. CAD analysis was submitted and interpreted. COMPARISON: 12/25/2019, 05/08/2018 BREAST PARENCHYMAL COMPOSITION: There are scattered areas of fibroglandular density. FINDINGS: There is no evidence of suspicious mass, calcification, or architectural distortion to sugg est malignancy. There has been no suspicious interval change. IMPRESSION: 1. No mammographic evidence of malignancy. 2. Recommend routine screening mammography while the patient remains in good health. BI-RADS Category 1: Negative Reviewed, dictated and finalized at location A. [employer] IMPRESSION: 1. No mammographic evidence of malignancy. 2. Recommend routine screening mammography while the patient remains in good he alth. BI-RADS Category 1: Negative
== END ==
PROVIDERS: PCP Family Medicine; Visit Provider Family Medicine
DX: Z12.31 Encounter for screening mammogram for malignant neoplasm of breast (principal)
CPT/HCPCS: 77063; 77067

== ENCOUNTER 2021-09-13 12:21 | Outpatient (CLI) | payer MEDICARE, SELFPAY ==
--- NOTE | ~2021-09-13 | XR_ITS ---
XR chest 2V 09/13/2021 12:41 Indication: Chest pain Procedure: 2 view chest Comparison: Comparison to multiple prior studies sequentially, with oldest reviewed study dated 03/2014. Findings: Heart size normal. No focal air space disease, pulmonary edema, pleural effusion or suspect ed pneumothorax. There is chronic apical pleural thickening/scarring. There are healed left rib fract ures. Osteopenia. There is diffuse idiopathic skeletal hyperostosis (DISH) of the thoracic spine. Impression: 1: No acute cardiopulmonary disease. Reviewed, dictated and finalized at location A. Impression: 1: No acute cardiopulmonary disease.
== END 2021-09-13 12:22 | disposition home or self-care (01) ==
PROVIDERS: PCP Family Medicine; Visit Provider Family Medicine
DX: R07.9 Chest pain, unspecified (principal)
CPT/HCPCS: 71046

== ENCOUNTER 2021-09-14 12:19 | Outpatient (CLI) | payer MEDICARE, SELFPAY ==
[2021-09-14 12:39] LABS: Basophils Absolute Auto 0.1 K/mm3 (0.0-0.1); Basophils Percent Auto 0.9 % (0.2-1.2); Eosinophils Absolute Auto 0.2 K/mm3 (0-0.3); Eosinophils Percent Auto 2.9 % (0-4.4); Hematocrit 40.7 % (37.0-47.0); Hemoglobin 12.8 g/dL (12.0-15.0); Immature Granulocyte Absolute 0.02 K/mm3 (0.00-0.031); Immature Granulocyte Percent A 0.3 % (0-0.5); Lymphocytes Absolute Auto 1.64 K/mm3 (0.9-3.2); Lymphocytes Percent Auto 28.1 % (18.3-44.2); Mean Corpuscular HGB Conc 31.4 g/dl (32-36); Mean Corpuscular Hemoglobin 30.3 pg (26-34); Mean Corpuscular Volume 96.4 fl (80-100); Mean Platelet Volume 9.4 fl (7.4-10.4); Monocytes Absolute Auto 0.4 K/mm3 (0.1-0.6); Monocytes Percent Auto 6.2 % (2.6-8.5); Neutrophils Absolute Auto 3.6 K/mm3 (1.3-6.7); Neutrophils Percent Auto 61.6 % (45.5-73.1); Platelet Count Result 296 k/mm3 (150-375); Red Blood Count 4.22 M/mm3 (4.2-5.4); Red Cell Distribution Width 13.3 % (11.5-14.5); White Blood Count 5.8 K/mm3 (4.5-10.0)
[2021-09-14 12:50] LABS: Alanine Aminotransferase 16 U/L (6-35); Albumin Level 4.6 g/dL (3.5-5.1); Alkaline Phosphatase 104 U/L (38-126); Anion Gap 7 mmol/L (8-16); Aspartate Amino Transferase 24 U/L (14-36); Bilirubin,Total 0.3 mg/dL (0.2-1.3); Blood Urea Nitrogen 33 mg/dL (7-17); Calcium 9.2 mg/dL (8.4-10.2); Carbon Dioxide 27 mmol/L (22-30); Chloride 107 mmol/L (98-107); Estimated Glomerular Filt Rate 39; Glucose 109 mg/dL (65-110); Potassium 4.9 mmol/L (3.4-5.0); Sodium 141 mmol/L (137-145)
[2021-09-14 13:20] LABS: Thyroid Stimulating Hormone 0.444 uIU/mL (0.465-4.680)
== END 2021-09-14 12:20 | disposition home or self-care (01) ==
PROVIDERS: PCP Family Medicine; Visit Provider Family Medicine
DX: I10 Essential (primary) hypertension (principal); E03.9 Hypothyroidism, unspecified
CPT/HCPCS: 36415; 80053; 84443; 85025

== ENCOUNTER 2022-05-25 15:56 | Outpatient (CLI) | payer MEDICARE, SELFPAY ==
[2022-05-25 17:03] LABS: Basophils Absolute Auto 0.1 K/mm3 (0.0-0.1); Basophils Percent Auto 0.6 % (0.2-1.2); Eosinophils Absolute Auto 0.1 K/mm3 (0-0.3); Eosinophils Percent Auto 1.4 % (0-4.4); Hematocrit 39.3 % (37.0-47.0); Hemoglobin 12.6 g/dL (12.0-15.0); Immature Granulocyte Absolute 0.02 K/mm3 (0.00-0.031); Immature Granulocyte Percent A 0.3 % (0-0.5); Lymphocytes Absolute Auto 1.61 K/mm3 (0.9-3.2); Lymphocytes Percent Auto 20.3 % (18.3-44.2); Mean Corpuscular HGB Conc 32.1 g/dl (32-36); Mean Corpuscular Hemoglobin 30.4 pg (26-34); Mean Corpuscular Volume 94.9 fl (80-100); Mean Platelet Volume 10.7 fl (7.4-10.4); Monocytes Absolute Auto 0.5 K/mm3 (0.1-0.6); Monocytes Percent Auto 6.4 % (2.6-8.5); Neutrophils Absolute Auto 5.7 K/mm3 (1.3-6.7); Platelet Count Result 274 k/mm3 (150-375); Red Blood Count 4.14 M/mm3 (4.2-5.4); Red Cell Distribution Width 13.4 % (11.5-14.5)
[2022-05-25 17:38] LABS: Alanine Aminotransferase 19 U/L (6-35); Albumin Level 4.7 g/dL (3.5-5.1); Alkaline Phosphatase 121 U/L (38-126); Anion Gap 7 mmol/L (8-16); Aspartate Amino Transferase 25 U/L (14-36); Bilirubin,Total 0.5 mg/dL (0.2-1.3); Blood Urea Nitrogen 34 mg/dL (7-17); Calcium 9.6 mg/dL (8.4-10.2); Carbon Dioxide 29 mmol/L (22-30); Chloride 100 mmol/L (98-107); Estimated Glomerular Filt Rate 36; Glucose 88 mg/dL (65-110); Potassium 5.1 mmol/L (3.4-5.0); Sodium 136 mmol/L (137-145)
[2022-05-25 17:55] LABS: Free T4 Free Thyroxine 1.41 ng/mL (0.78-2.19)
[2022-05-25 18:09] LABS: Thyroid Stimulating Hormone 0.395 uIU/mL (0.465-4.680)
[2022-05-29 04:00] LABS: Thyroid Peroxidase Antibodies 1 IU/mL (<9)
[2022-05-31 05:47] LABS: Triiodothyronine T3 Free 3.1 pg/mL (2.3-4.2)
== END 2022-05-25 15:57 | disposition home or self-care (01) ==
LOC: ANHLAB 15:58
PROVIDERS: PCP Family Medicine; Visit Provider Family Medicine
DX: E07.9 Disorder of thyroid, unspecified (principal); I10 Essential (primary) hypertension
CPT/HCPCS: 36415; 80053; 84439; 84443; 84481; 85025; 86376

== ENCOUNTER 2022-06-14 11:19 | Outpatient (CLI) | payer MEDICARE, SELFPAY ==
--- NOTE | ~2022-06-14 | US_ITS ---
EXAMINATION: US thyroid DATE: 06/14/2022 12:03 INDICATION: Disorder of thyroid, unspecified. TECHNIQUE: Multiple ultrasound images of the thyroid were obtained. COMPARISON: None. FINDINGS: The right thyroid lobe measures 3.6 x 1.5 x 1.5 cm. The left thyroid lobe measures 2.7 x 1.1 x 1.7 c m. In the right thyroid lobe, there is a 2.7 cm predominantly solid, hypoechoic, wider than tall nod ule with lobulated margin without echogenic foci (TI-RADS TR4). In the left thyroid lobe, there is a 11 mm solid, hypoechoic, wider than tall nodule with lobulated margin without echogenic foci (TR4). I n the left thyroid lobe, there is a 17 mm solid, hypoechoic, wider than tall nodule with macrocalcifi cation (TR4). IMPRESSION: 1. Multinodular goiter. Consider ultrasound-guided fine-needle aspiration of 2 nodules if clinically indicated given the patient's age. Reviewed, dictated and finalized at location A.
== END 2022-06-14 11:20 | disposition home or self-care (01) ==
LOC: ANHIMG 11:20
PROVIDERS: PCP Family Medicine; Visit Provider Family Medicine
DX: E07.9 Disorder of thyroid, unspecified (principal); E04.2 Nontoxic multinodular goiter
CPT/HCPCS: 76536

== ENCOUNTER 2022-10-02 16:04 | Outpatient (CLI) | payer MEDICARE, SELFPAY ==
--- NOTE | ~2022-10-02 | US_ITS ---
Duplex Sonography of the left extremity: Indication: Swelling Findings: Sagittal and transverse B-mode images as well as color-flow imaging were performed on the l eft femoral and popliteal veins. B-mode examination was done without and with compression in the tra nsverse plane. There is good visualization of the common femoral, proximal profunda femoral, superfi cial femoral, greater saphenous, and popliteal veins. Normal flow was seen on color-flow imaging. No rmal compressibility was demonstrated. Visualized calf veins are also patent. Impression: No evidence of deep vein thrombosis involving the left lower extremity. Reviewed, dictated and finalized at location M. Impression: No evidence of deep vein thrombosis involving the left lower extremity.
[2022-10-02 16:36] LABS: Alanine Aminotransferase 141 U/L (6-35); Albumin Level 4.4 g/dL (3.5-5.1); Alkaline Phosphatase 114 U/L (38-126); Anion Gap 8 mmol/L (8-16); Aspartate Amino Transferase 75 U/L (14-36); Bilirubin,Total 0.4 mg/dL (0.2-1.3); Blood Urea Nitrogen 26 mg/dL (7-17); Carbon Dioxide 27 mmol/L (22-30); Chloride 104 mmol/L (98-107); Estimated Glomerular Filt Rate 42; Glucose 108 mg/dL (65-110); Potassium 4.9 mmol/L (3.4-5.0); Sodium 139 mmol/L (137-145)
== END 2022-10-02 16:05 | disposition home or self-care (01) ==
PROVIDERS: PCP Family Medicine; Visit Provider Physician Assistant
DX: R60.0 Localized edema (principal); N18.32 Chronic kidney disease, stage 3b
CPT/HCPCS: 36415; 80053; 93971